=== PATIENT | female | born 1950 | race American Indian/Alaskan Native ===

== ENCOUNTER 2017-05-28 12:59 | Day surgery (SDC) | payer MEDICARE, OTHER ==
[~2017-05-28] VITALS: Ht 157.5 cm; Wt 83.4 kg
[~2017-05-28 12:59] MED LIST: ACEBUTCAFT PO; ACET500 PO; ALPR.5 PO; AMIT25 PO; AMOX500; Bupropion HCl200 MG PO; CALCAVITDA PO; CALCIUM PO; CEPH500 PO; CHLO50 PO; CHOL10002 PO; CIPR500 PO; CLAR500; Cipro250 MG PO; DOXE25 PO; ERGO400 PO; FIBER PO; FLUO20 PO; FURO20; FURO20 PO; FURO40 PO; FURO80 PO; Flonase 0.05% N16 GM; GABA300 PO; HARVONI 90-4001 EACH PO; HYDACE5; HYDACE5 PO; HYDR25SUP PR; HYOS.125 SL; Hydrocodone-Ap1 EA23 PO; L LYSINE PO; LACT10SY PO; LEVSOD100 PO; LEVSOD125; LEVSOD75 PO; LISI5 PO; LORA1 PO; METCAR750 PO; METO10 PO; MULVITMIND PO; MULVITMINE PO; MULVITMINF PO; Maxalt10 MG; Mobic15 MG PO; NADO20 PO; NADO40; NADOLOL; NADOLOL PO; NORT25 PO; OMEP10ER; OMEP20ER PO; ONDA8ODT MM; OXYACE5T PO; OXYB5 PO; OXYC10ER PO; OXYC10TA19 PO; OXYC5 PO; PANT20 PO; PANT40 PO; PERM5TC TOP; POLY17UD PO; PROC10 PO; PROM25 PO; PROM25S PR; RANI150; RIZATRIPTAN10 MG PO; RXONDA4ODT MM; RXTRAM50 PO; SENN187 PO; SPIR25; SPIR25 PO; SPIR50 PO; STOOL SOFTENER; STOOL SOFTENER1 EAC1; SUMA25 PO; TELM40; THIOTHIXENE PO; TOCO400; TOPI100 PO; TOPI25 PO; TOPI25C PO; TRAM50 PO; WOMEN'S DAILY1 EACH PO
[2017-09-22] MEDS ORDERED: NADO20 (13:47)
== END 2017-05-28 16:15 | disposition home or self-care (01) ==
LOC: ORSCSDS 12:59
PROVIDERS: Internal Medicine Gastroenterology
PROC: 0DBL8ZX Excision of Transverse Colon, Via Natural or Artificial Opening Endoscopic, Diagnostic (ICD-10-PCS; principal; 2017-05-28 14:30)
DX: R10.30 Lower abdominal pain, unspecified (principal); D12.3 Benign neoplasm of transverse colon; K59.00 Constipation, unspecified; K57.30 Diverticulosis of large intestine without perforation or abscess without bleeding; K64.8 Other hemorrhoids; K74.60 Unspecified cirrhosis of liver; B19.20 Unspecified viral hepatitis C without hepatic coma; E03.9 Hypothyroidism, unspecified; K21.9 Gastro-esophageal reflux disease without esophagitis; N18.3 Chronic kidney disease, stage 3 (moderate); Z79.899 Other long term (current) drug therapy
CPT/HCPCS: 88305; J7120

== ENCOUNTER 2017-06-26 09:02 | Day surgery (SDC) | payer MEDICARE, OTHER ==
[2017-06-25 16:38] LABS: BASOPHILS ABSOLUTE AUTO 0.01 K/mm3 (0.00-0.23); BASOPHILS PERCENT AUTO 1 % (0-2); EOSINOPHILS ABSOLUTE AUTO 0.03 K/mm3 (0.00-0.68); EOSINOPHILS PERCENT AUTO 1 % (0-6); Hematocrit 36.3 % (33.0-51.0); Hemoglobin 11.7 g/dL (11.5-16.0); IMMATURE GRAN PERCENT AUTO 0 % (0-1); LYMPHOCYTES ABSOLUTE AUTO 0.61 K/mm3 (0.84-5.20); LYMPHOCYTES PERCENT AUTO 29 % (21-46); MONOCYTES ABSOLUTE AUTO 0.18 K/mm3 (0.16-1.47); MONOCYTES PERCENT AUTO 9 % (4-13); Mean Corpuscular HGB 30.2 pg (26.0-34.0); Mean Corpuscular HGB Conc 32.2 g/dL (31.5-36.5); Mean Corpuscular Volume 94 fL (80-100); Mean Platelet Volume 11.1 fL (9.1-12.4); NEUTROPHILS ABSOLUTE AUTO 1.28 K/mm3 (1.96-9.15); NEUTROPHILS PERCENT AUTO 61 % (41-73); RDW Coefficient Variation 14.9 % (11.7-14.2); RDW Standard Deviation 51.2 fL (35.1-46.3); Red Blood Cell Count 3.87 M/mm3 (3.80-5.20); White Blood Cell Count 2.11 K/mm3 (4.00-11.30)
[2017-06-25 16:40] LABS: Platelet Count 35 K/mm3 (150-400)
[2017-06-25 17:17] LABS: Bun/Creatinine Ratio 9.9 (12.0-20.0); Calcium, Blood 8.4 mg/dL (8.5-10.1); Creatinine, Blood 1.11 mg/dL (0.40-1.00); Potassium, Blood 4.2 mmol/L (3.5-5.5)
[2017-09-22] MEDS ORDERED: NADO20 (13:47)
== END 2017-06-26 11:26 | disposition home or self-care (01) ==
LOC: ATC 09:02
PROVIDERS: Podiatrist Foot & Ankle Surgery
PROC: 30233R1 Transfusion of Nonautologous Platelets into Peripheral Vein, Percutaneous Approach (ICD-10-PCS; principal; 2017-06-26)
DX: D69.6 Thrombocytopenia, unspecified (principal); D68.4 Acquired coagulation factor deficiency; M20.10 Hallux valgus (acquired), unspecified foot; E03.9 Hypothyroidism, unspecified; Z88.8 Allergy status to other drugs, medicaments and biological substances; Z79.899 Other long term (current) drug therapy
CPT/HCPCS: 36415; 36430; 80048; 85025; 86850; 86900; 86901; P9035

== ENCOUNTER 2017-06-26 11:38 | Day surgery (SDC) | payer MEDICARE, OTHER ==
[~2017-06-26] VITALS: Ht 157.5 cm; Wt 85.0 kg
[2017-09-22] MEDS ORDERED: NADO20 (13:47)
== END 2017-06-26 17:37 | disposition home or self-care (01) ==
LOC: ORSCSDS 11:38
PROVIDERS: Podiatrist Foot & Ankle Surgery
PROC: 0SGN04Z Fusion of Left Metatarsal-Phalangeal Joint with Internal Fixation Device, Open Approach (ICD-10-PCS; principal; 2017-06-26 14:45)
DX: M20.12 Hallux valgus (acquired), left foot (principal); I10 Essential (primary) hypertension; N18.3 Chronic kidney disease, stage 3 (moderate); B19.20 Unspecified viral hepatitis C without hepatic coma; K21.9 Gastro-esophageal reflux disease without esophagitis; Z79.899 Other long term (current) drug therapy; E66.9 Obesity, unspecified; Z68.32 Body mass index [BMI] 32.0-32.9, adult
CPT/HCPCS: C1713; C1769; J0171; J0690; J1100; J2250; J2405; J3010; J7120

== ENCOUNTER 2017-08-02 01:02 | Emergency (ER) | payer MEDICARE, OTHER ==
[~2017-08-02] VITALS: Ht 157.5 cm; Wt 79.4 kg
[2017-08-02 01:54] LABS: BASOPHILS ABSOLUTE AUTO 0.01 K/mm3 (0.00-0.23); BASOPHILS PERCENT AUTO 1 % (0-2); EOSINOPHILS ABSOLUTE AUTO 0.03 K/mm3 (0.00-0.68); EOSINOPHILS PERCENT AUTO 1 % (0-6); Hematocrit 34.3 % (33.0-51.0); Hemoglobin 11.1 g/dL (11.5-16.0); IMMATURE GRAN ABSOLUTE AUTO 0.01 K/mm3 (0.00-0.10); IMMATURE GRAN PERCENT AUTO 1 % (0-1); LYMPHOCYTES ABSOLUTE AUTO 0.43 K/mm3 (0.84-5.20); LYMPHOCYTES PERCENT AUTO 21 % (21-46); MONOCYTES ABSOLUTE AUTO 0.18 K/mm3 (0.16-1.47); MONOCYTES PERCENT AUTO 9 % (4-13); Mean Corpuscular HGB 29.9 pg (26.0-34.0); Mean Corpuscular HGB Conc 32.4 g/dL (31.5-36.5); Mean Corpuscular Volume 93 fL (80-100); Mean Platelet Volume 9.6 fL (9.1-12.4); NEUTROPHILS ABSOLUTE AUTO 1.41 K/mm3 (1.96-9.15); NEUTROPHILS PERCENT AUTO 68 % (41-73); RDW Coefficient Variation 14.8 % (11.7-14.2); RDW Standard Deviation 49.4 fL (35.1-46.3); Red Blood Cell Count 3.71 M/mm3 (3.80-5.20); White Blood Cell Count 2.07 K/mm3 (4.00-11.30)
[2017-08-02 03:02] LABS: Platelet Count 31 K/mm3 (150-400)
[2017-08-02 03:16] LABS: Alanine Aminotransfer (ALT/SGP 13 U/L (12-78); Albumin, Blood 3.1 g/dL (3.4-5.0); Albumin/Globulin Ratio 0.9 (0.8-1.8); Alk Phos 79 U/L (50-136); Anion Gap 8 mmol/L (6-16); Aspartate Aminotrans (AST/SGOT 13 U/L (12-37); Bilirubin, Total 0.8 mg/dL (0.1-1.0); Blood Urea Nitrogen 14 mg/dL (8-24); Bun/Creatinine Ratio 13.1 (12.0-20.0); CO2, Blood 24 mmol/L (21-32); Calcium, Blood 8.3 mg/dL (8.5-10.1); Chloride, Blood 107 mmol/L (98-108); Creatinine, Blood 1.07 mg/dL (0.40-1.00); Globulin, Blood 3.6 g/dL (2.2-4.0); Glomerular Filtration Rate 55 (60-); Glucose, Blood 101 mg/dL (70-99); Potassium, Blood 3.7 mmol/L (3.5-5.5); Sodium, Blood 139 mmol/L (136-145); Total Protein, Blood 6.7 g/dL (6.4-8.2); Troponin I <0.015 ng/mL (0.000-0.040)
[2017-09-22] MEDS ORDERED: NADO20 (13:47)
== END 2017-08-02 05:05 | disposition home or self-care (01) ==
LOC: ER 01:02
PROVIDERS: Emergency Medicine
DX: R06.00 Dyspnea, unspecified (principal); F31.9 Bipolar disorder, unspecified; Z88.5 Allergy status to narcotic agent; Z88.8 Allergy status to other drugs, medicaments and biological substances; Z79.899 Other long term (current) drug therapy
CPT/HCPCS: 36415; 71046; 80053; 83880; 84484; 85025; 85379; 93005; 93010; 99283

== ENCOUNTER 2017-08-14 10:44 | Day surgery (SDC) | payer MEDICARE, OTHER ==
[~2017-08-14] VITALS: Ht 157.5 cm; Wt 84.5 kg
[2017-09-22] MEDS ORDERED: NADO20 (13:47)
== END 2017-08-14 12:46 | disposition home or self-care (01) ==
LOC: ORSCSDS 10:44
PROVIDERS: Internal Medicine Gastroenterology
PROC: 0DB68ZX Excision of Stomach, Via Natural or Artificial Opening Endoscopic, Diagnostic (ICD-10-PCS; principal; 2017-08-14 12:30)
DX: I85.00 Esophageal varices without bleeding (principal); K62.1 Rectal polyp; B19.20 Unspecified viral hepatitis C without hepatic coma; F32.9 Major depressive disorder, single episode, unspecified; E03.9 Hypothyroidism, unspecified; E87.6 Hypokalemia; K21.9 Gastro-esophageal reflux disease without esophagitis; K74.60 Unspecified cirrhosis of liver; K76.6 Portal hypertension; K31.89 Other diseases of stomach and duodenum; Z79.899 Other long term (current) drug therapy
CPT/HCPCS: 88305; 88312; 88342; J7120

== ENCOUNTER 2017-09-15 20:24 | Emergency (ER) | payer MEDICARE, OTHER ==
[~2017-09-15] VITALS: Ht 157.5 cm; Wt 81.7 kg
[2017-09-15 20:47] LABS: BASOPHILS ABSOLUTE AUTO 0.02 K/mm3 (0.00-0.23); BASOPHILS PERCENT AUTO 1 % (0-2); EOSINOPHILS ABSOLUTE AUTO 0.01 K/mm3 (0.00-0.68); EOSINOPHILS PERCENT AUTO 0 % (0-6); Hematocrit 32.2 % (33.0-51.0); Hemoglobin 10.6 g/dL (11.5-16.0); IMMATURE GRAN ABSOLUTE AUTO 0.01 K/mm3 (0.00-0.10); IMMATURE GRAN PERCENT AUTO 0 % (0-1); LYMPHOCYTES ABSOLUTE AUTO 0.38 K/mm3 (0.84-5.20); LYMPHOCYTES PERCENT AUTO 9 % (21-46); MONOCYTES ABSOLUTE AUTO 0.41 K/mm3 (0.16-1.47); MONOCYTES PERCENT AUTO 9 % (4-13); Mean Corpuscular HGB 30.1 pg (26.0-34.0); Mean Corpuscular HGB Conc 32.9 g/dL (31.5-36.5); Mean Corpuscular Volume 92 fL (80-100); Mean Platelet Volume 12.2 fL (9.1-12.4); NEUTROPHILS PERCENT AUTO 81 % (41-73); RDW Coefficient Variation 14.9 % (11.7-14.2); RDW Standard Deviation 50.2 fL (35.1-46.3); Red Blood Cell Count 3.52 M/mm3 (3.80-5.20); White Blood Cell Count 4.43 K/mm3 (4.00-11.30)
[2017-09-15 20:50] LABS: Platelet Count 25 K/mm3 (150-400)
[2017-09-15 21:06] LABS: Anion Gap 9 mmol/L (6-16); Blood Urea Nitrogen 18 mg/dL (8-24); Bun/Creatinine Ratio 16.7 (12.0-20.0); CO2, Blood 22 mmol/L (21-32); Calcium, Blood 8.3 mg/dL (8.5-10.1); Chloride, Blood 108 mmol/L (98-108); Creatinine, Blood 1.08 mg/dL (0.40-1.00); Ethanol (Alcohol), Blood, Med <3 mg/dL; Glomerular Filtration Rate 54 (60-); Glucose, Blood 112 mg/dL (70-99); Potassium, Blood 4.2 mmol/L (3.5-5.5); Sodium, Blood 139 mmol/L (136-145)
== END 2017-09-15 21:30 | disposition home or self-care (01) ==
LOC: ER 20:24
PROVIDERS: Emergency Medicine
DX: S01.01XA Laceration without foreign body of scalp, initial encounter (principal); S16.1XXA Strain of muscle, fascia and tendon at neck level, initial encounter; D69.6 Thrombocytopenia, unspecified; Z23 Encounter for immunization; W18.30XA Fall on same level, unspecified, initial encounter
CPT/HCPCS: 12001; 70450; 72125; 80048; 85025; 90471; 90714; 99284; G0480

== ENCOUNTER 2017-09-29 12:45 | Day surgery (SDC) | payer MEDICARE, OTHER ==
[~2017-09-29] VITALS: Ht 157.5 cm; Wt 83.0 kg
[~2017-09-29 12:45] MED LIST changes: +NADO20
[2017-09-29] MEDS ORDERED: GABA300 (13:34)
[2017-09-29] MEDS ORDERED: TOPI100 (13:36)
== END 2017-09-29 16:40 | disposition home or self-care (01) ==
LOC: ORSCSDS 12:45
PROVIDERS: Internal Medicine Gastroenterology
PROC: 0DJD8ZZ Inspection of Lower Intestinal Tract, Via Natural or Artificial Opening Endoscopic (ICD-10-PCS; principal; 2017-09-29 14:00)
DX: R10.32 Left lower quadrant pain (principal); K57.92 Diverticulitis of intestine, part unspecified, without perforation or abscess without bleeding; K62.89 Other specified diseases of anus and rectum; K76.6 Portal hypertension; K31.89 Other diseases of stomach and duodenum; K64.8 Other hemorrhoids; K57.30 Diverticulosis of large intestine without perforation or abscess without bleeding; R10.31 Right lower quadrant pain; Z86.010 Personal history of colon polyps; B19.20 Unspecified viral hepatitis C without hepatic coma; R18.8 Other ascites; K21.9 Gastro-esophageal reflux disease without esophagitis; E03.9 Hypothyroidism, unspecified; F32.9 Major depressive disorder, single episode, unspecified; E87.6 Hypokalemia; N18.3 Chronic kidney disease, stage 3 (moderate); Z79.899 Other long term (current) drug therapy
CPT/HCPCS: J7120

== ENCOUNTER → 2018-03-31 | Outpatient (CLI) | payer MEDICARE, OTHER ==
[~2018-03-31] MED LIST changes: +GABA300; +TOPI100
[2018-03-31 09:19] LABS: BASOPHILS ABSOLUTE AUTO 0.01 K/mm3 (0.00-0.23); BASOPHILS PERCENT AUTO 1 % (0-2); EOSINOPHILS ABSOLUTE AUTO 0.06 K/mm3 (0.00-0.68); EOSINOPHILS PERCENT AUTO 3 % (0-6); Hematocrit 33.8 % (33.0-51.0); Hemoglobin 10.9 g/dL (11.5-16.0); IMMATURE GRAN ABSOLUTE AUTO 0.01 K/mm3 (0.00-0.10); IMMATURE GRAN PERCENT AUTO 1 % (0-1); LYMPHOCYTES PERCENT AUTO 15 % (21-46); MONOCYTES ABSOLUTE AUTO 0.11 K/mm3 (0.16-1.47); MONOCYTES PERCENT AUTO 6 % (4-13); Mean Corpuscular HGB 26.8 pg (26.0-34.0); Mean Corpuscular HGB Conc 32.2 g/dL (31.5-36.5); Mean Corpuscular Volume 83 fL (80-100); Mean Platelet Volume 10.7 fL (9.1-12.4); NEUTROPHILS PERCENT AUTO 75 % (41-73); RDW Coefficient Variation 17.1 % (11.7-14.2); RDW Standard Deviation 51.5 fL (35.1-46.3); Red Blood Cell Count 4.07 M/mm3 (3.80-5.20); White Blood Cell Count 1.99 K/mm3 (4.00-11.30)
[2018-03-31 09:31] LABS: Bun/Creatinine Ratio 14.4 (12.0-20.0); Calcium, Blood 8.5 mg/dL (8.5-10.1); Creatinine, Blood 1.32 mg/dL (0.40-1.00); Potassium, Blood 3.5 mmol/L (3.5-5.5)
[2018-03-31 10:36] LABS: BAND PERCENT MAN 3 % (0-8); BASOPHILS PERCENT MAN 2 % (0-2); EOSINOPHILS PERCENT MAN 4 % (0-6); LYMPHOCYTES PERCENT MAN 16 % (21-46); MONOCYTES PERCENT MAN 3 % (4-13); SEG NEUTROPHILS PERCENT MAN 72 % (41-73); TOTAL CELLS COUNTED 100
[2018-03-31 10:45] LABS: Platelet Count 29 K/mm3 (150-400)
== END | disposition home or self-care (01) ==
LOC: LAB EV 09:14 → LAB SHORT 09:14
PROVIDERS: Physician Assistant Surgical
DX: R10.32 Left lower quadrant pain (principal); R53.83 Other fatigue
CPT/HCPCS: 80048; 84484; 85025

== ENCOUNTER 2018-06-08 09:40 | Day surgery (SDC) | payer MEDICARE, OTHER ==
[~2018-06-08] VITALS: Ht 160 cm; Wt 69.7 kg
[~2018-06-08 09:40] MED LIST changes: +ALBU90OI61 INH; +ALLO100 PO; +Colace100 MG PO; -GABA300; +GAVILAX17 GM PO; +MOTION RELIEF25 MG PO; -TOPI100
== END 2018-06-08 11:40 | disposition home or self-care (01) ==
LOC: ORSCSDS 09:40
PROVIDERS: Internal Medicine Gastroenterology
PROC: 0DJ08ZZ Inspection of Upper Intestinal Tract, Via Natural or Artificial Opening Endoscopic (ICD-10-PCS; principal; 2018-06-08 11:00)
DX: I85.00 Esophageal varices without bleeding (principal); K76.6 Portal hypertension; K31.89 Other diseases of stomach and duodenum; K21.9 Gastro-esophageal reflux disease without esophagitis; F31.9 Bipolar disorder, unspecified; F43.10 Post-traumatic stress disorder, unspecified; E03.9 Hypothyroidism, unspecified; K74.60 Unspecified cirrhosis of liver; I10 Essential (primary) hypertension; Z79.899 Other long term (current) drug therapy
CPT/HCPCS: J7120

== ENCOUNTER → 2018-09-28 | Outpatient (CLI) | payer MEDICARE, OTHER ==
[~2018-09-28] MED LIST changes: +Augmentin 875-1 EACH PO; +B-121000 MCG PO; +BACL10 PO; +CHLO50; +Flagyl500 MG PO; +IRON150C PO; +METR250 PO; +Ultram50 MG PO
[2018-09-30 09:35] LABS: Campylobacter Sp Not Detected (NOT DETECT); Plesiomonas Shigelloides Not Detected (NOT DETECT); Salmonella Sp Not Detected (NOT DETECT)
[2018-09-30 09:36] LABS: Enteroaggregative E. coli-EAEC Not Detected (NOT DETECT); Enteropathogenic E. coli-EPEC Not Detected (NOT DETECT); Enterotoxigenic E. coli-ETEC Not Detected (NOT DETECT); Shiga Toxin-prod E. coli-STEC Not Detected (NOT DETECT); Vibrio Cholerae Not Detected (NOT DETECT); Vibrio Sp Not Detected (NOT DETECT); Yersinia Enterocolitica Not Detected (NOT DETECT)
[2018-09-30 09:37] LABS: Adenovirus F 40/41 Not Detected (NOT DETECT); Astrovirus Not Detected (NOT DETECT); Cryptosporidium Not Detected (NOT DETECT); Cyclospora Cayetanensis Not Detected (NOT DETECT); E. Coli O157 Not Detected (NOT DETECT); Entamoeba Histolytica Not Detected (NOT DETECT); Giardia Lamblia Not Detected (NOT DETECT); Norovirus GI/GII Not Detected (NOT DETECT); Rotavirus A Not Detected (NOT DETECT); Sapovirus Not Detected (NOT DETECT); Shigella/Enteroin E. coli-EIEC Not Detected (NOT DETECT)
== END ==
LOC: LAB 06:15 → LAB SHORT 06:15 → LAB FUT 09-08 16:15
PROVIDERS: Internal Medicine Gastroenterology
DX: R93.3 Abnormal findings on diagnostic imaging of other parts of digestive tract (principal)
CPT/HCPCS: 87507

== ENCOUNTER 2018-11-03 00:07 | Day surgery (SDC) | payer MEDICARE, OTHER ==
[~2018-11-03 00:07] MED LIST changes: -ALLO100 PO; -B-121000 MCG PO; -Bupropion HCl200 MG PO; -OXYB5 PO; -PANT20 PO
--- NOTE | 2018-11-03 10:09 | NUR ---
IV ATTEMPT X2, NOT ABLE TO FLUSH, DC Rivas RN IN TO ACCESS, SEE VAS RECORD
== END 2018-11-03 10:55 | disposition home or self-care (01) ==
LOC: ATC 00:07
DX: D69.6 Thrombocytopenia, unspecified (principal); F31.9 Bipolar disorder, unspecified; F43.10 Post-traumatic stress disorder, unspecified; E03.9 Hypothyroidism, unspecified; K21.9 Gastro-esophageal reflux disease without esophagitis; G43.909 Migraine, unspecified, not intractable, without status migrainosus; Z79.899 Other long term (current) drug therapy; Z88.8 Allergy status to other drugs, medicaments and biological substances; Z88.1 Allergy status to other antibiotic agents
CPT/HCPCS: 36430; 86900; 86901; J7050; P9035

== ENCOUNTER 2018-11-22 17:34 | Emergency (ER) | payer OTHER ==
[~2018-11-22] VITALS: Ht 160 cm; Wt 60.8 kg
[2018-11-22] MEDS ORDERED: OXYC10TA19 (18:20)
[2018-11-22] MEDS ORDERED: METCAR500 PO (18:20)
[2018-11-22 18:54] LABS: BASOPHILS ABSOLUTE AUTO 0.04 K/mm3 (0.00-0.23); BASOPHILS PERCENT AUTO 1 % (0-2); EOSINOPHILS ABSOLUTE AUTO 0.01 K/mm3 (0.00-0.68); EOSINOPHILS PERCENT AUTO 0 % (0-6); Hematocrit 35.8 % (33.0-51.0); IMMATURE GRAN ABSOLUTE AUTO 0.02 K/mm3 (0.00-0.10); IMMATURE GRAN PERCENT AUTO 1 % (0-1); LYMPHOCYTES ABSOLUTE AUTO 0.59 K/mm3 (0.84-5.20); LYMPHOCYTES PERCENT AUTO 19 % (21-46); MONOCYTES ABSOLUTE AUTO 0.28 K/mm3 (0.16-1.47); MONOCYTES PERCENT AUTO 9 % (4-13); Mean Corpuscular HGB 30.9 pg (26.0-34.0); Mean Corpuscular HGB Conc 33.5 g/dL (31.5-36.5); Mean Corpuscular Volume 92 fL (80-100); Mean Platelet Volume 10.1 fL (9.1-12.4); NEUTROPHILS ABSOLUTE AUTO 2.21 K/mm3 (1.96-9.15); NEUTROPHILS PERCENT AUTO 70 % (41-73); RDW Standard Deviation 54.5 fL (35.1-46.3); Red Blood Cell Count 3.88 M/mm3 (3.80-5.20); White Blood Cell Count 3.15 K/mm3 (4.00-11.30)
[2018-11-22 19:00] LABS: Platelet Count 47 K/mm3 (150-400)
[2018-11-22 19:03] LABS: Alanine Aminotransfer (ALT/SGP 24 U/L (12-78); Albumin, Blood 3.2 g/dL (3.4-5.0); Albumin/Globulin Ratio 0.9 (0.8-1.8); Alk Phos 132 U/L (50-136); Anion Gap 10 mmol/L (6-16); Aspartate Aminotrans (AST/SGOT 19 U/L (12-37); Bilirubin, Total 1.2 mg/dL (0.1-1.0); Blood Urea Nitrogen 13 mg/dL (8-24); Bun/Creatinine Ratio 16.7 (12.0-20.0); CO2, Blood 22 mmol/L (21-32); Calcium, Blood 8.2 mg/dL (8.5-10.1); Chloride, Blood 106 mmol/L (98-108); Creatinine, Blood 0.78 mg/dL (0.40-1.00); Globulin, Blood 3.5 g/dL (2.2-4.0); Glomerular Filtration Rate >60 (60-); Glucose, Blood 82 mg/dL (70-99); Potassium, Blood 3.5 mmol/L (3.5-5.5); Sodium, Blood 138 mmol/L (136-145); Total Protein, Blood 6.7 g/dL (6.4-8.2)
[2018-11-22 19:38] LABS: International Normalized Ratio 1.35; Prothrombin Time Results 13.9 Sec (9.7-11.5)
[2018-11-22] MEDS ORDERED: ANTI-DIARRHEAL2 MG PO (20:12)
[2018-11-22] MEDS ORDERED: ONDA4ODT MM (20:12)
== END 2018-11-22 20:31 | disposition home or self-care (01) ==
LOC: ER 17:34
PROVIDERS: Physician Assistant
DX: K74.60 Unspecified cirrhosis of liver (principal); D69.6 Thrombocytopenia, unspecified; R19.7 Diarrhea, unspecified; G43.909 Migraine, unspecified, not intractable, without status migrainosus; F31.9 Bipolar disorder, unspecified; F43.10 Post-traumatic stress disorder, unspecified; Z79.899 Other long term (current) drug therapy; Z79.891 Long term (current) use of opiate analgesic
CPT/HCPCS: 74177; 80053; 83690; 85025; 85610; 96361-59; 96374-59; 99284-25; J2405; J7030; Q9967

== ENCOUNTER 2019-01-01 14:09 | Emergency (ER) | payer OTHER ==
[~2019-01-01] VITALS: Ht 160 cm; Wt 59.0 kg
[~2019-01-01 14:09] MED LIST changes: +ANTI-DIARRHEAL2 MG PO; +METCAR500 PO; +ONDA4ODT MM; +OXYC10TA19
[2019-01-01] MEDS ORDERED: LACT10SY PO (14:36)
[2019-01-01 14:53] LABS: BASOPHILS ABSOLUTE AUTO 0.04 K/mm3 (0.00-0.23); BASOPHILS PERCENT AUTO 0 % (0-2); EOSINOPHILS PERCENT AUTO 0 % (0-6); Hematocrit 35.3 % (33.0-51.0); IMMATURE GRAN ABSOLUTE AUTO 0.07 K/mm3 (0.00-0.10); IMMATURE GRAN PERCENT AUTO 1 % (0-1); LYMPHOCYTES ABSOLUTE AUTO 0.82 K/mm3 (0.84-5.20); LYMPHOCYTES PERCENT AUTO 7 % (21-46); MONOCYTES ABSOLUTE AUTO 0.32 K/mm3 (0.16-1.47); MONOCYTES PERCENT AUTO 3 % (4-13); Mean Corpuscular HGB 29.1 pg (26.0-34.0); Mean Corpuscular Volume 86 fL (80-100); NEUTROPHILS ABSOLUTE AUTO 10.35 K/mm3 (1.96-9.15); NEUTROPHILS PERCENT AUTO 89 % (41-73); RDW Coefficient Variation 14.5 % (11.7-14.2); RDW Standard Deviation 45.1 fL (35.1-46.3); Red Blood Cell Count 4.12 M/mm3 (3.80-5.20)
[2019-01-01 14:54] LABS: Acetaminophen, Random 23.8 ug/mL (10.0-30.0); Alanine Aminotransfer (ALT/SGP 6 U/L (12-78); Albumin/Globulin Ratio 0.5 (0.8-1.8); Alk Phos 100 U/L (50-136); Anion Gap 13 mmol/L (6-16); Aspartate Aminotrans (AST/SGOT 17 U/L (12-37); Bilirubin, Total 1.3 mg/dL (0.1-1.0); Blood Urea Nitrogen 30 mg/dL (8-24); Bun/Creatinine Ratio 17.2 (12.0-20.0); CO2, Blood 23 mmol/L (21-32); Calcium, Blood 7.9 mg/dL (8.5-10.1); Chloride, Blood 95 mmol/L (98-108); Creatinine, Blood 1.74 mg/dL (0.40-1.00); Ethanol (Alcohol), Blood, Med <3 mg/dL; Glomerular Filtration Rate 31 (60-); Glucose, Blood 93 mg/dL (70-99); Magnesium, Blood 1.7 mg/dL (1.6-2.4); Potassium, Blood 3.4 mmol/L (3.5-5.5); Sodium, Blood 131 mmol/L (136-145); Troponin I <0.015 ng/mL (0.000-0.040)
[2019-01-01 14:57] LABS: Mean Platelet Volume 9.9 fL (9.1-12.4); Platelet Count 85 K/mm3 (150-400)
[2019-01-01 15:44] LABS: International Normalized Ratio 1.32; Prothrombin Time Results 13.6 Sec (9.7-11.5)
[2019-01-01 16:23] LABS: Source, Urine Clean Catch
[2019-01-01 16:31] LABS: Bilirubin, Urine Neg (Neg); Blood, Urine 5+ (Neg); Glucose Qualitative, Urine Neg (Neg); Ketones, Urine 1+ (Neg); Leukocyte Esterase, Urine 1+ (Neg); Nitrite, Urine Neg (Neg); Protein, Urine 2+ (Neg); Specific Gravity, Urine 1.015 (1.003-1.022); Urobilinogen, Urine NORM (Normal)
[2019-01-01 16:40] LABS: Appearance, Urine Cloudy (Clear); Color, Urine Amber (P-Yellow)
[2019-01-01 16:42] LABS: Red Blood Cells, Urine 25-50 /hpf (0-2)
[2019-01-01 16:43] LABS: Bacteria Mod /hpf; Yeast/Fungi Urine Few /hpf
[2019-01-01 16:44] LABS: Squamous Epithelial Cells Few /hpf (Few)
[2019-01-01] MEDS ORDERED: CEPH500 PO (17:18)
== END 2019-01-01 18:00 | disposition home or self-care (01) ==
LOC: ER 14:09
PROVIDERS: Emergency Medicine
DX: N39.0 Urinary tract infection, site not specified (principal); K74.60 Unspecified cirrhosis of liver; R18.8 Other ascites; N28.9 Disorder of kidney and ureter, unspecified; E86.0 Dehydration; F31.9 Bipolar disorder, unspecified; F43.10 Post-traumatic stress disorder, unspecified; Z88.5 Allergy status to narcotic agent; Z88.8 Allergy status to other drugs, medicaments and biological substances; Z79.899 Other long term (current) drug therapy
CPT/HCPCS: 36415; 51701; 80053; 81001; 82140; 83690; 83735; 83880; 84484; 85025; 85610; 87086; 96360-59; 96361-59; 99284-25; G0480

== ENCOUNTER 2019-01-10 16:34 | Emergency (ER) | payer OTHER ==
[~2019-01-10] VITALS: Ht 160 cm; Wt 68.0 kg
== END 2019-01-10 18:35 | disposition home or self-care (01) ==
LOC: ER 16:34
DX: S83.92XA Sprain of unspecified site of left knee, initial encounter (principal); S30.0XXA Contusion of lower back and pelvis, initial encounter; X50.9XXA Other and unspecified overexertion or strenuous movements or postures, initial encounter; Z88.5 Allergy status to narcotic agent; Z88.8 Allergy status to other drugs, medicaments and biological substances; Z79.899 Other long term (current) drug therapy; Z79.891 Long term (current) use of opiate analgesic; G43.909 Migraine, unspecified, not intractable, without status migrainosus; F31.9 Bipolar disorder, unspecified; F43.10 Post-traumatic stress disorder, unspecified
CPT/HCPCS: 72220; 73564; 99283-25

== ENCOUNTER 2019-01-12 12:13 | Emergency (ER) | payer OTHER ==
[~2019-01-12] VITALS: Ht 162.6 cm; Wt 59.0 kg
[2019-01-12 12:49] LABS: BASOPHILS ABSOLUTE AUTO 0.03 K/mm3 (0.00-0.23); BASOPHILS PERCENT AUTO 0 % (0-2); EOSINOPHILS ABSOLUTE AUTO 0.02 K/mm3 (0.00-0.68); EOSINOPHILS PERCENT AUTO 0 % (0-6); Hematocrit 30.1 % (33.0-51.0); Hemoglobin 9.9 g/dL (11.5-16.0); IMMATURE GRAN ABSOLUTE AUTO 0.04 K/mm3 (0.00-0.10); IMMATURE GRAN PERCENT AUTO 1 % (0-1); LYMPHOCYTES PERCENT AUTO 7 % (21-46); MONOCYTES ABSOLUTE AUTO 0.27 K/mm3 (0.16-1.47); MONOCYTES PERCENT AUTO 3 % (4-13); Mean Corpuscular HGB 28.7 pg (26.0-34.0); Mean Corpuscular HGB Conc 32.9 g/dL (31.5-36.5); Mean Corpuscular Volume 87 fL (80-100); Mean Platelet Volume 8.6 fL (9.1-12.4); NEUTROPHILS ABSOLUTE AUTO 7.15 K/mm3 (1.96-9.15); NEUTROPHILS PERCENT AUTO 88 % (41-73); Platelet Count 71 K/mm3 (150-400); RDW Coefficient Variation 16.6 % (11.7-14.2); RDW Standard Deviation 51.5 fL (35.1-46.3); Red Blood Cell Count 3.45 M/mm3 (3.80-5.20); White Blood Cell Count 8.11 K/mm3 (4.00-11.30)
[2019-01-12 13:05] LABS: Albumin, Blood 2.3 g/dL (3.4-5.0); Albumin/Globulin Ratio 0.6 (0.8-1.8); Bilirubin, Total 1.4 mg/dL (0.1-1.0); Bun/Creatinine Ratio 17.4 (12.0-20.0); Calcium, Blood 8.1 mg/dL (8.5-10.1); Creatinine, Blood 1.84 mg/dL (0.40-1.00); Globulin, Blood 3.9 g/dL (2.2-4.0); Potassium, Blood 3.7 mmol/L (3.5-5.5); Total Protein, Blood 6.2 g/dL (6.4-8.2)
[2019-01-12 13:07] LABS: International Normalized Ratio 1.3; Prothrombin Time Results 13.5 Sec (9.7-11.5)
[2019-01-12 15:07] LABS: Automated BF WBC Count 0.118 K/mm3 (0-999); Body Fluid WBC Count 118 /mm3 (0-999)
[2019-01-12 15:34] LABS: Albumin, Body Fluid 0.3 g/dL; Glucose, Body Fluid 100 mg/dL; Lactate Dehydrogenase, Body Fl 31 U/L; Protein, Body Fluid 0.7 g/dL
[2019-01-12 15:49] LABS: RBC Count, Body Fluid 767 /mm3 (0-0)
[2019-01-12 16:32] LABS: Appearance, Body Fluid Clear (Clear); Color, Body Fluid Yellow (None-Yellow); Total Cell Count, Body Fluid 100
== END 2019-01-12 18:00 | disposition home or self-care (01) ==
LOC: ER 12:13
PROVIDERS: Physician Assistant
DX: R18.8 Other ascites (principal); Z88.5 Allergy status to narcotic agent; Z88.8 Allergy status to other drugs, medicaments and biological substances; Z79.899 Other long term (current) drug therapy; Z79.891 Long term (current) use of opiate analgesic; G43.909 Migraine, unspecified, not intractable, without status migrainosus; F31.9 Bipolar disorder, unspecified; F43.10 Post-traumatic stress disorder, unspecified
CPT/HCPCS: 36415; 49083; 80053; 82042; 82945; 83615; 84157; 85025; 85610; 87070; 87205; 89051; 99284-25

== ENCOUNTER 2019-01-28 11:49 | Inpatient (IN) | payer OTHER ==
[~2019-01-28] VITALS: Ht 160 cm; Wt 72.2 kg
[2019-01-28 13:19] LABS: BASOPHILS ABSOLUTE AUTO 0.02 K/mm3 (0.00-0.23); BASOPHILS PERCENT AUTO 1 % (0-2); EOSINOPHILS ABSOLUTE AUTO 0.01 K/mm3 (0.00-0.68); EOSINOPHILS PERCENT AUTO 0 % (0-6); Hematocrit 22.7 % (33.0-51.0); Hemoglobin 7.5 g/dL (11.5-16.0); IMMATURE GRAN ABSOLUTE AUTO 0.01 K/mm3 (0.00-0.10); IMMATURE GRAN PERCENT AUTO 0 % (0-1); LYMPHOCYTES ABSOLUTE AUTO 0.65 K/mm3 (0.84-5.20); LYMPHOCYTES PERCENT AUTO 19 % (21-46); MONOCYTES ABSOLUTE AUTO 0.24 K/mm3 (0.16-1.47); MONOCYTES PERCENT AUTO 7 % (4-13); Mean Corpuscular HGB 28.7 pg (26.0-34.0); Mean Corpuscular Volume 87 fL (80-100); Mean Platelet Volume 9.5 fL (9.1-12.4); NEUTROPHILS ABSOLUTE AUTO 2.46 K/mm3 (1.96-9.15); NEUTROPHILS PERCENT AUTO 73 % (41-73); RDW Coefficient Variation 18.6 % (11.7-14.2); RDW Standard Deviation 58.6 fL (35.1-46.3); Red Blood Cell Count 2.61 M/mm3 (3.80-5.20); White Blood Cell Count 3.39 K/mm3 (4.00-11.30)
[2019-01-28 13:21] LABS: Platelet Count 63 K/mm3 (150-400)
[2019-01-28 13:45] LABS: Albumin/Globulin Ratio 0.6 (0.8-1.8); Bilirubin, Total 0.8 mg/dL (0.1-1.0); Bun/Creatinine Ratio 13.1 (12.0-20.0); Calcium, Blood 6.6 mg/dL (8.5-10.1); Creatinine, Blood 1.99 mg/dL (0.40-1.00); Globulin, Blood 3.6 g/dL (2.2-4.0); Potassium, Blood 2.9 mmol/L (3.5-5.5); Total Protein, Blood 5.6 g/dL (6.4-8.2)
[2019-01-28] MEDS ORDERED: FOLI1 PO (14:41)
[2019-01-28] MEDS ORDERED: GABA300 PO (14:41)
[2019-01-28] MEDS ORDERED: MOTION RELIEF25 MG PO (14:42)
[2019-01-28] MEDS ORDERED: POTA10T PO (14:43)
[2019-01-28] MEDS ORDERED: Lasix40 MG PO (14:44)
[2019-01-28] MEDS ORDERED: ALLO100 PO (14:46)
[2019-01-28 16:14] LABS: Magnesium, Blood 1.7 mg/dL (1.6-2.4)
[2019-01-28 16:17] LABS: Thyroid Stimulating Hormone 29.4 uIU/mL (0.360-4.800)
--- NOTE | 2019-01-28 19:23 | NUR ---
PT ADMITTED AT 1800. ADMIT DONE EXCEPT HISTORY. SPOKE TO DR SU, HE SAW PT. ORDERS MADE. STATES WILL WRITE ORDERS FOR 1000CC FLUID RESTRICT. PT A/O CALL LITE IN REACH, BED IN LOW POSITION, CALLS APPROP
--- NOTE | 2019-01-29 00:52 | NUR ---
24-HR URINE IS BEING RESTARTED AT THIS TIME SAMPLE IS SOILED BY STOOL IN THE URINE PER CREPE LAMINATOR OPERATOR.
[2019-01-29 05:37] LABS: BASOPHILS ABSOLUTE AUTO 0.03 K/mm3 (0.00-0.23); BASOPHILS PERCENT AUTO 1 % (0-2); EOSINOPHILS ABSOLUTE AUTO 0.03 K/mm3 (0.00-0.68); EOSINOPHILS PERCENT AUTO 1 % (0-6); Hematocrit 23.4 % (33.0-51.0); Hemoglobin 7.9 g/dL (11.5-16.0); IMMATURE GRAN ABSOLUTE AUTO 0.02 K/mm3 (0.00-0.10); IMMATURE GRAN PERCENT AUTO 1 % (0-1); LYMPHOCYTES ABSOLUTE AUTO 0.78 K/mm3 (0.84-5.20); LYMPHOCYTES PERCENT AUTO 23 % (21-46); MONOCYTES ABSOLUTE AUTO 0.28 K/mm3 (0.16-1.47); MONOCYTES PERCENT AUTO 8 % (4-13); Mean Corpuscular HGB 29.3 pg (26.0-34.0); Mean Corpuscular HGB Conc 33.8 g/dL (31.5-36.5); Mean Corpuscular Volume 87 fL (80-100); Mean Platelet Volume 9.7 fL (9.1-12.4); NEUTROPHILS ABSOLUTE AUTO 2.31 K/mm3 (1.96-9.15); NEUTROPHILS PERCENT AUTO 67 % (41-73); Platelet Count 79 K/mm3 (150-400); RDW Coefficient Variation 18.4 % (11.7-14.2); RDW Standard Deviation 58.5 fL (35.1-46.3); White Blood Cell Count 3.45 K/mm3 (4.00-11.30)
[2019-01-29 05:59] LABS: Magnesium, Blood 1.8 mg/dL (1.6-2.4)
[2019-01-29 06:09] LABS: Alanine Aminotransfer (ALT/SGP <6 U/L (12-78); Albumin, Blood 1.9 g/dL (3.4-5.0); Albumin/Globulin Ratio 0.5 (0.8-1.8); Alk Phos 65 U/L (50-136); Anion Gap 9 mmol/L (6-16); Aspartate Aminotrans (AST/SGOT 13 U/L (12-37); Bilirubin, Direct 0.4 mg/dL (0.0-0.3); Bilirubin, Indirect 0.5 mg/dL (0.1-0.7); Bilirubin, Total 0.9 mg/dL (0.1-1.0); Blood Urea Nitrogen 30 mg/dL (8-24); Bun/Creatinine Ratio 14.4 (12.0-20.0); CO2, Blood 24 mmol/L (21-32); Calcium, Blood 6.5 mg/dL (8.5-10.1); Chloride, Blood 104 mmol/L (98-108); Creatinine, Blood 2.09 mg/dL (0.40-1.00); Globulin, Blood 3.5 g/dL (2.2-4.0); Glomerular Filtration Rate 25 (60-); Glucose, Blood 92 mg/dL (70-99); Potassium, Blood 3.2 mmol/L (3.5-5.5); Sodium, Blood 137 mmol/L (136-145); Total Protein, Blood 5.4 g/dL (6.4-8.2)
--- NOTE | 2019-01-29 06:09 | NUR ---
SHIFT SUMMARY PT IS A&O X 4, STAND BY PIVOT TRANSFER TO BSC. PT HAS HAD A FEW INCONTINENT VOIDS, HOWEVER 24-HR URINE WAS STARTED. UNFORTUNATELY, SAMPLE BECAME SOILED BY STOOL EARLY THIS AM AND HAD TO BE RESTARTED. PT HAS NOT VOIDED SINCE. FLUID RESTRICTION OF 1L MAINTAINED. ABD IS DISTENDED AND FIRM; ASCITES; PT REPORTS PARACENTESIS WAS DONE IN DECEMBER AND 3.5L WAS REMOVED. 3+ PITTING EDEMA NOTED TO BLE. WILL CONT TO MONITOR AND PROVIDE CARE UNTIL PRESUMED BY ONCOMING RN.
--- NOTE | 2019-01-29 18:14 | NUR ---
PATIENT CONTINUES TO BE ON FLUID RESTRICTIONS. ABD STILL DESTENDED. JON PLACED PER DOC ORDER AND GOOD OUTPUT SINCE THEN. PATIENT IS ALERT BUT IS OFTEN CONFUSED , REPORTS SEEING PEOPLE AND THINGS THAT ARE NOT IN THE ROOM. PATIENT HAD TO BE CONSTANTLY REMINDED NOT TO PUT HER URINE BAG WHICH IS RESTING IN ICE, INTO HER BED. WHEN ASKED ABOUT IT SHE DENIED IT AND SAID THE AIDE WAS LYING EVEN THOUGH WE BOTH SAW HER REACH DOWN AND GRAB IT. SHE IS OFTEN CONFUSED BUT IS REDIRECTABLE. SHE HAS REMAINED IN BED THIS SHIFT AND HAS HAD NO COMPLAINTS OF PAIN, SOB, OR NV.
[2019-01-30 05:05] LABS: Albumin, Blood 1.7 g/dL (3.4-5.0); Anion Gap 6 mmol/L (6-16); Blood Urea Nitrogen 34 mg/dL (8-24); Bun/Creatinine Ratio 15.9 (12.0-20.0); CO2, Blood 23 mmol/L (21-32); Calcium, Blood 6.9 mg/dL (8.5-10.1); Chloride, Blood 106 mmol/L (98-108); Creatinine, Blood 2.14 mg/dL (0.40-1.00); Glomerular Filtration Rate 24 (60-); Glucose, Blood 110 mg/dL (70-99); Magnesium, Blood 1.7 mg/dL (1.6-2.4); Phosphorus, Blood 2.6 mg/dL (2.5-4.9); Potassium, Blood 3.7 mmol/L (3.5-5.5); Sodium, Blood 135 mmol/L (136-145)
[2019-01-30 05:07] LABS: BASOPHILS ABSOLUTE AUTO 0.03 K/mm3 (0.00-0.23); BASOPHILS PERCENT AUTO 1 % (0-2); EOSINOPHILS ABSOLUTE AUTO 0.03 K/mm3 (0.00-0.68); EOSINOPHILS PERCENT AUTO 1 % (0-6); Hematocrit 23.2 % (33.0-51.0); Hemoglobin 7.6 g/dL (11.5-16.0); IMMATURE GRAN ABSOLUTE AUTO 0.02 K/mm3 (0.00-0.10); IMMATURE GRAN PERCENT AUTO 1 % (0-1); LYMPHOCYTES ABSOLUTE AUTO 1.03 K/mm3 (0.84-5.20); LYMPHOCYTES PERCENT AUTO 28 % (21-46); MONOCYTES ABSOLUTE AUTO 0.29 K/mm3 (0.16-1.47); MONOCYTES PERCENT AUTO 8 % (4-13); Mean Corpuscular HGB 28.9 pg (26.0-34.0); Mean Corpuscular HGB Conc 32.8 g/dL (31.5-36.5); Mean Corpuscular Volume 88 fL (80-100); Mean Platelet Volume 9.3 fL (9.1-12.4); NEUTROPHILS ABSOLUTE AUTO 2.34 K/mm3 (1.96-9.15); NEUTROPHILS PERCENT AUTO 63 % (41-73); Platelet Count 81 K/mm3 (150-400); RDW Coefficient Variation 18.6 % (11.7-14.2); RDW Standard Deviation 59.8 fL (35.1-46.3); Red Blood Cell Count 2.63 M/mm3 (3.80-5.20); White Blood Cell Count 3.74 K/mm3 (4.00-11.30)
--- NOTE | 2019-01-30 06:52 | NUR ---
SHIFT SUMMARY PT SLEPT T/O NIGHT. 24HR URINE TEST STILL IN USE UNTIL ABOUT 1045 THIS AM. DANAY IZQUIERDO. CALL LIGHT IN REACH.
[2019-01-30 06:59] LABS: Percent Saturation 29.2 % (15.0-50.0)
[2019-01-30 11:49] LABS: Protein, Urine Quantitative 14.8 mg/dL (0.0-11.9)
--- NOTE | 2019-01-30 19:05 | NUR ---
PT. SITTING IN BED, EXHUSBAND AT BEDSIDE, RELATES HE CAN'T TAKE CARE OF HER AND DOESN'T LIVE WITH HIM. PT. SKIN APPEARS BRONZED OR HEAVILY TANNED. RECEIVED I UPRBC'S TODAY. NO NOTEABLE CHANGES THIS SHIFT.
--- NOTE | 2019-01-30 20:17 | NUR ---
1944: ASSUMED CARE OF PATIENT. PT OOB TO BSC FOR SM BM. PT VERY CONFUSED. PT STAND PIVOT BTB BUT PT INSISTING HER BED IS IN ANOTHER ROOM, AGITATED AT EX-. REORIENTED PATIENT, LINENS CHANGED, ATTENDS CHANGED. BED LOW AND LOCKED AND ALARMED. CALL EDWARDS WITHIN REACH
[2019-01-31 05:04] LABS: BASOPHILS ABSOLUTE AUTO 0.04 K/mm3 (0.00-0.23); BASOPHILS PERCENT AUTO 1 % (0-2); EOSINOPHILS ABSOLUTE AUTO 0.01 K/mm3 (0.00-0.68); EOSINOPHILS PERCENT AUTO 0 % (0-6); Hematocrit 24.9 % (33.0-51.0); Hemoglobin 8.3 g/dL (11.5-16.0); IMMATURE GRAN ABSOLUTE AUTO 0.02 K/mm3 (0.00-0.10); IMMATURE GRAN PERCENT AUTO 1 % (0-1); LYMPHOCYTES ABSOLUTE AUTO 0.92 K/mm3 (0.84-5.20); LYMPHOCYTES PERCENT AUTO 21 % (21-46); MONOCYTES ABSOLUTE AUTO 0.25 K/mm3 (0.16-1.47); MONOCYTES PERCENT AUTO 6 % (4-13); Mean Corpuscular HGB 28.7 pg (26.0-34.0); Mean Corpuscular HGB Conc 33.3 g/dL (31.5-36.5); Mean Corpuscular Volume 86 fL (80-100); NEUTROPHILS PERCENT AUTO 71 % (41-73); Platelet Count 68 K/mm3 (150-400); RDW Standard Deviation 56.5 fL (35.1-46.3); Red Blood Cell Count 2.89 M/mm3 (3.80-5.20); White Blood Cell Count 4.34 K/mm3 (4.00-11.30)
[2019-01-31 05:45] LABS: Magnesium, Blood 1.9 mg/dL (1.6-2.4)
[2019-01-31 05:47] LABS: Albumin, Blood 1.8 g/dL (3.4-5.0); Anion Gap 10 mmol/L (6-16); Blood Urea Nitrogen 36 mg/dL (8-24); Bun/Creatinine Ratio 16.4 (12.0-20.0); CO2, Blood 22 mmol/L (21-32); Calcium, Blood 7.2 mg/dL (8.5-10.1); Chloride, Blood 107 mmol/L (98-108); Glomerular Filtration Rate 24 (60-); Glucose, Blood 109 mg/dL (70-99); Phosphorus, Blood 2.8 mg/dL (2.5-4.9); Potassium, Blood 3.7 mmol/L (3.5-5.5); Sodium, Blood 139 mmol/L (136-145)
[2019-01-31] MEDS ORDERED: ACET325 PO (12:47)
[2019-01-31] MEDS ORDERED: Bumetanide2 MG PO (12:47)
[2019-01-31] MEDS ORDERED: LEVSOD50 PO (12:49)
[2019-01-31] MEDS ORDERED: CALCIUM CARBONATE PO (12:49)
[2019-01-31] MEDS ORDERED: METO2.5 PO (12:49)
[2019-01-31] MEDS ORDERED: ONDA4ODT MM (12:50)
[2019-01-31] MEDS ORDERED: PROP10 PO (12:50)
--- NOTE | 2019-01-31 17:25 | NUR ---
REPORT CALLED TO DESTINY AT [facility]. PT AWAITING W/C TRANSPORT AT 1800. DANAY DC'D AND PT HAD 2 INCONT VOIDS SINCE. SPOUSE BRANDT NOTIFIED VIA PHONE IN PT ROOM, HE REPORTS HE DIDNT THINK SHE WANTED [facility] HOWEVER PT IS IN THE BACKGROUND STATING SHE WANTS [facility], VERIFIED AGAIN WHEN OFF THE PHONE AND PT CONT TO REPORT SHE IS FINE WITH [facility] AND WANTS TO GO. SACRAL DRESSING PLACED COCCYX.
--- NOTE | 2019-01-31 18:10 | NUR ---
PT DC'D TO [facility] VIA [facility] W/C AT 1802.
== END 2019-01-31 18:02 | DRG 291 ==
LOC: ER 11:49 → MEDS 11:50 → ENPENDDIS 01-31 10:40 → MEDS 01-31 18:02
PROVIDERS: Emergency Medicine; Internal Medicine Nephrology; ADMIT Family Medicine
DX: I13.0 Hypertensive heart and chronic kidney disease with heart failure and stage 1 through stage 4 chronic kidney disease, or unspecified chronic kidney disease (principal); N17.0 Acute kidney failure with tubular necrosis; D61.818 Other pancytopenia; E87.1 Hypo-osmolality and hyponatremia; E44.0 Moderate protein-calorie malnutrition; N18.4 Chronic kidney disease, stage 4 (severe); N25.81 Secondary hyperparathyroidism of renal origin; B19.20 Unspecified viral hepatitis C without hepatic coma; F31.9 Bipolar disorder, unspecified; G43.909 Migraine, unspecified, not intractable, without status migrainosus; G89.4 Chronic pain syndrome; D63.1 Anemia in chronic kidney disease; K74.60 Unspecified cirrhosis of liver; E03.9 Hypothyroidism, unspecified; E87.6 Hypokalemia; E83.51 Hypocalcemia; E87.70 Fluid overload, unspecified; E88.09 Other disorders of plasma-protein metabolism, not elsewhere classified; I50.810 Right heart failure, unspecified
CPT/HCPCS: 36415; 36430; 71046; 76705; 80053; 80069; 81050; 82140; 82248; 82272; 82607; 82728; 82746; 83540; 83550; 83735; 83880; 84156; 84443; 84484; 85025; 86850; 86900; 86901; 86923; 93005; 93010; 93971; 96372; 96374; 96376; 97162; 97166; 97530; 99285-25; C9113; G0378; J1644; P9016

== ENCOUNTER 2019-02-04 10:02 | Emergency (ER) | payer OTHER ==
[~2019-02-04] VITALS: Ht 160 cm; Wt 31.8 kg
[~2019-02-04 10:02] MED LIST changes: +ACET325 PO; +ALLO100 PO; +Bumetanide2 MG PO; +CALCIUM CARBONATE PO; +FOLI1 PO; +LEVSOD50 PO; +Lasix40 MG PO; +METO2.5 PO; +POTA10T PO; +PROP10 PO
[2019-02-04 10:42] LABS: BASOPHILS ABSOLUTE AUTO 0.03 K/mm3 (0.00-0.23); BASOPHILS PERCENT AUTO 0 % (0-2); EOSINOPHILS ABSOLUTE AUTO 0.01 K/mm3 (0.00-0.68); EOSINOPHILS PERCENT AUTO 0 % (0-6); Hematocrit 29.2 % (33.0-51.0); Hemoglobin 9.9 g/dL (11.5-16.0); IMMATURE GRAN ABSOLUTE AUTO 0.03 K/mm3 (0.00-0.10); IMMATURE GRAN PERCENT AUTO 0 % (0-1); LYMPHOCYTES ABSOLUTE AUTO 1.11 K/mm3 (0.84-5.20); LYMPHOCYTES PERCENT AUTO 17 % (21-46); MONOCYTES ABSOLUTE AUTO 0.35 K/mm3 (0.16-1.47); MONOCYTES PERCENT AUTO 5 % (4-13); Mean Corpuscular HGB 28.4 pg (26.0-34.0); Mean Corpuscular HGB Conc 33.9 g/dL (31.5-36.5); Mean Corpuscular Volume 84 fL (80-100); Mean Platelet Volume 9.5 fL (9.1-12.4); NEUTROPHILS ABSOLUTE AUTO 5.18 K/mm3 (1.96-9.15); NEUTROPHILS PERCENT AUTO 77 % (41-73); Platelet Count 71 K/mm3 (150-400); RDW Coefficient Variation 17.5 % (11.7-14.2); RDW Standard Deviation 53.4 fL (35.1-46.3); Red Blood Cell Count 3.48 M/mm3 (3.80-5.20); White Blood Cell Count 6.71 K/mm3 (4.00-11.30)
[2019-02-04 10:46] LABS: Source, Urine Catheter
[2019-02-04 11:02] LABS: Bilirubin, Urine Neg (Neg); Blood, Urine 5+ (Neg); Glucose Qualitative, Urine Neg (Neg); Ketones, Urine Neg (Neg); Leukocyte Esterase, Urine 3+ (Neg); Nitrite, Urine Neg (Neg); Protein, Urine Neg (Neg); Specific Gravity, Urine 1.005 (1.003-1.022); Urobilinogen, Urine NORM (Normal)
[2019-02-04 11:09] LABS: Appearance, Urine Hazy (Clear); Bacteria Many /hpf; Color, Urine Yellow (P-Yellow); Red Blood Cells, Urine TNTC /hpf (0-2); Squamous Epithelial Cells Not Seen /hpf (Few); White Blood Cells, Urine TNTC /hpf (0-5)
[2019-02-04 11:15] LABS: Albumin, Blood 2.4 g/dL (3.4-5.0); Albumin/Globulin Ratio 0.6 (0.8-1.8); Bilirubin, Total 1.5 mg/dL (0.1-1.0); Bun/Creatinine Ratio 24.4 (12.0-20.0); Calcium, Blood 8.8 mg/dL (8.5-10.1); Creatinine, Blood 2.13 mg/dL (0.40-1.00); Globulin, Blood 4.3 g/dL (2.2-4.0); Total Protein, Blood 6.7 g/dL (6.4-8.2)
[2019-02-04] MEDS ORDERED: LEVSOD50 PO (11:15)
[2019-02-04] MEDS ORDERED: PROHEAL (11:16)
[2019-02-04] MEDS ORDERED: calcium carbonate (11:18)
[2019-02-04] MEDS ORDERED: METO2.5 PO (11:19)
[2019-02-04] MEDS ORDERED: POTA10T PO (11:19)
[2019-02-04] MEDS ORDERED: OXYB5ER PO (11:19)
[2019-02-04] MEDS ORDERED: Aldactone50 MG PO (11:20)
[2019-02-04] MEDS ORDERED: PROP10 PO (11:20)
[2019-02-04] MEDS ORDERED: TOPI100 PO (11:21)
[2019-02-04] MEDS ORDERED: Bumetanide2 MG PO (11:21)
[2019-02-04] MEDS ORDERED: ACETAMINOPHEN650 MG PO (11:22)
[2019-02-04] MEDS ORDERED: ONDA4ODT MM (11:22)
[2019-02-04] MEDS ORDERED: Keflex500 MG PO (12:16)
== END 2019-02-04 15:43 | disposition home or self-care (01) ==
LOC: ER 10:02
PROVIDERS: Emergency Medicine
DX: N39.0 Urinary tract infection, site not specified (principal); I12.9 Hypertensive chronic kidney disease with stage 1 through stage 4 chronic kidney disease, or unspecified chronic kidney disease; N18.4 Chronic kidney disease, stage 4 (severe); D63.1 Anemia in chronic kidney disease; E03.9 Hypothyroidism, unspecified; R58 Hemorrhage, not elsewhere classified; E86.0 Dehydration; D69.6 Thrombocytopenia, unspecified; K74.60 Unspecified cirrhosis of liver; B19.20 Unspecified viral hepatitis C without hepatic coma; Z88.8 Allergy status to other drugs, medicaments and biological substances; Z88.5 Allergy status to narcotic agent; Z79.899 Other long term (current) drug therapy
CPT/HCPCS: 36415; 71046; 80053; 81001; 82140; 85025; 87077; 87086; 87186; 93005; 93010; 96361; 96365; 99285-25; J0696; J7030; P9612

== ENCOUNTER 2019-02-11 12:21 | Inpatient (IN) | payer OTHER ==
[~2019-02-11] VITALS: Ht 160 cm; Wt 48.0 kg
[~2019-02-11 12:21] MED LIST changes: +ACETAMINOPHEN650 MG PO; +Aldactone50 MG PO; +Keflex500 MG PO; +OXYB5ER PO; +PROHEAL; +calcium carbonate
[2019-02-11 14:04] LABS: BASOPHILS ABSOLUTE AUTO 0.07 K/mm3 (0.00-0.23); BASOPHILS PERCENT AUTO 1 % (0-2); EOSINOPHILS ABSOLUTE AUTO 0.02 K/mm3 (0.00-0.68); EOSINOPHILS PERCENT AUTO 0 % (0-6); Hematocrit 29.1 % (33.0-51.0); Hemoglobin 10.5 g/dL (11.5-16.0); IMMATURE GRAN ABSOLUTE AUTO 0.08 K/mm3 (0.00-0.10); IMMATURE GRAN PERCENT AUTO 1 % (0-1); LYMPHOCYTES ABSOLUTE AUTO 2.01 K/mm3 (0.84-5.20); LYMPHOCYTES PERCENT AUTO 22 % (21-46); MONOCYTES ABSOLUTE AUTO 0.47 K/mm3 (0.16-1.47); MONOCYTES PERCENT AUTO 5 % (4-13); Mean Corpuscular HGB 29.8 pg (26.0-34.0); Mean Corpuscular HGB Conc 36.1 g/dL (31.5-36.5); Mean Corpuscular Volume 83 fL (80-100); Mean Platelet Volume 9.1 fL (9.1-12.4); NEUTROPHILS ABSOLUTE AUTO 6.37 K/mm3 (1.96-9.15); NEUTROPHILS PERCENT AUTO 71 % (41-73); Platelet Count 96 K/mm3 (150-400); RDW Coefficient Variation 17.7 % (11.7-14.2); RDW Standard Deviation 51.5 fL (35.1-46.3); Red Blood Cell Count 3.52 M/mm3 (3.80-5.20); White Blood Cell Count 9.02 K/mm3 (4.00-11.30)
[2019-02-11 14:25] LABS: Albumin, Blood 2.9 g/dL (3.4-5.0); Albumin/Globulin Ratio 0.6 (0.8-1.8); Bilirubin, Total 1.6 mg/dL (0.1-1.0); Bun/Creatinine Ratio 34.1 (12.0-20.0); Calcium, Blood 8.8 mg/dL (8.5-10.1); Creatinine, Blood 2.17 mg/dL (0.40-1.00); Globulin, Blood 4.5 g/dL (2.2-4.0); Potassium, Blood 2.6 mmol/L (3.5-5.5); Total Protein, Blood 7.4 g/dL (6.4-8.2)
[2019-02-11 15:08] LABS: International Normalized Ratio 1.22; Prothrombin Time Results 12.7 Sec (9.7-11.5)
[2019-02-11] MEDS ORDERED: Bupropion HCl200 MG PO (15:40)
[2019-02-11] MEDS ORDERED: FOLI1 PO (15:41)
[2019-02-11] MEDS ORDERED: GABA300 PO (15:41)
[2019-02-11] MEDS ORDERED: MOTION RELIEF25 MG PO (15:42)
[2019-02-11] MEDS ORDERED: SPIR25 PO (15:42)
[2019-02-11] MEDS ORDERED: POTCHL20ER PO (15:43)
[2019-02-11] MEDS ORDERED: PANT20 PO (15:43)
[2019-02-11] MEDS ORDERED: FURO40 PO (15:44)
[2019-02-11] MEDS ORDERED: VITAMIN B-121000 MCG PO (15:45)
[2019-02-11] MEDS ORDERED: ALLO100 PO (15:46)
[2019-02-11] MEDS ORDERED: TOPI100 PO (15:46)
[2019-02-11] MEDS ORDERED: Lactulose10 GM/151 PO (16:40)
--- NOTE | 2019-02-11 17:45 | NUR ---
INITIAL ASSESSMENT: REPORT RECIEVED FROM ALEX DEL ANGEL RN. PT ARRIVED TO PCU 14 VIA GURNEY AND WAS SLID TO BED. PT IS SATURATED IN URINE. PT WAS CLEANED UP. PT HAS STAGE 2 PRESSURE ULCER TO COCCYX, LOOKS TO BE HEALING DUE TO SCARRING IN THE SURROUNDING TISSUE. MEPLIEX PLACED TO COCCYX WOUND. CLEAN ATTEND IN PLACE. PT IS ALERT AND ORIENTED TO SELF ONLY. PT IS NOT ABLE TO TELL ME THE DATE AND STATES SHE IS IN [facility]. PT REPORTS 9/10 LEFT HIP PAIN, SHE DESCRIBES THIS A DULL ACHE. WHEN ASKED SHE STATES SHE DOES NOT TAKE ANY MEDICATIONS AT HOME FOR PAIN, SHE USES HEAT AND ICE. HRR. LS CTA, BION WNL ON RA. BT+. PT IS EMACIATED, SHE STATES SHE HAS LOST 125LB IN THE LAST YEAR. PT STATES SHE HAS BEEN TRYING TO LOOSE WEIGHT. PPP. RIGHT LE PRONATED AND HAS A PURPLISH DISCOLORATION. GREAT PEDAL PULSE IN THE LEFT AND THREADY ON THE RIGHT. RN WIN AT BEDSIDE TO ASSIST WITH ADMISSION MEDICATIONS AND HEALTH HISTORY. AT BEDSIDE TO ASSIST WITH HEALTH HISTORY. PT ORIENTED TO ROOM AND CALL LIGHT.
--- NOTE | 2019-02-11 18:00 | NUR ---
CALL PLACED TO DOCTOR SU, CONSULT CALLED, SEE NEW ORDERS.
[2019-02-11 18:56] LABS: Albumin, Blood 2.8 g/dL (3.4-5.0); Anion Gap 7 mmol/L (6-16); Blood Urea Nitrogen 74 mg/dL (8-24); Bun/Creatinine Ratio 35.6 (12.0-20.0); CO2, Blood 34 mmol/L (21-32); Calcium, Blood 8.9 mg/dL (8.5-10.1); Chloride, Blood 81 mmol/L (98-108); Creatinine, Blood 2.08 mg/dL (0.40-1.00); Glomerular Filtration Rate 25 (60-); Glucose, Blood 103 mg/dL (70-99); Magnesium, Blood 2.3 mg/dL (1.6-2.4); Phosphorus, Blood 4.8 mg/dL (2.5-4.9); Potassium, Blood 3.9 mmol/L (3.5-5.5); Sodium, Blood 122 mmol/L (136-145)
[2019-02-12 04:47] LABS: Magnesium, Blood 2.1 mg/dL (1.6-2.4)
[2019-02-12 04:58] LABS: Albumin, Blood 2.7 g/dL (3.4-5.0); Anion Gap 10 mmol/L (6-16); Blood Urea Nitrogen 70 mg/dL (8-24); Bun/Creatinine Ratio 31.1 (12.0-20.0); CO2, Blood 33 mmol/L (21-32); Calcium, Blood 8.4 mg/dL (8.5-10.1); Chloride, Blood 82 mmol/L (98-108); Creatinine, Blood 2.25 mg/dL (0.40-1.00); Glomerular Filtration Rate 23 (60-); Glucose, Blood 98 mg/dL (70-99); Phosphorus, Blood 4.4 mg/dL (2.5-4.9); Potassium, Blood 2.8 mmol/L (3.5-5.5); Sodium, Blood 125 mmol/L (136-145)
--- NOTE | 2019-02-12 05:50 | NUR ---
SHIFT SUMMARY PT RESTING IN ROOM COMFORTABLY AT THIS TIME, EATING SNACK. PT WAS RECEIVING POTASSIUM VIA IA UPON START OF SHIFT AND LEVELS IMPROVED AFTER ADMIN. PT SLEPT WELL T/O NIGHT AND RECEIVED NS AT 50ML/HR VIA PIV. RESP EVEN UNLBAOLRED ON RA W. SATS >92%. PT DENIED ANY CP OR SOB. WITH AM LABS PT POTASSIUM LEVEL DROPPED AGAIN AND NEW ORDERS FOR ADDITIONAL POTASSIUM WERE GIVEN. KCL INFUSING IN PIV AT THIS TIME. PT SITTING UPRIGHT REQUESTING SNACK, ABLE TO FEED SELF. WATCHING TV AT THIS TIME. PT INCONTINENT, ATTENDS IN PLACE. CALL LIGHT IN REACH
[2019-02-12 12:12] LABS: Hematocrit 25.9 % (33.0-51.0); Hemoglobin 9.2 g/dL (11.5-16.0)
--- NOTE | 2019-02-12 13:52 | NUR ---
CHAIR PT HAD INCONTINENT VOID THAT WET BED. PT WAS ABLE TO STAND BRIEFLY AND PIVOT TO RECLINER WHILE LINEN CHANGE PERFORMED. TWO PERSON MAX ASSIST W/GAIT BELT TO TRANSFER. NOW BACK TO BED. POSITIONED TO L SIDE. NEW ATTENDS IN PLACE. CALL LIGHT IN REACH.
--- NOTE | 2019-02-12 15:01 | NUR ---
STARTED IV INFUSION AT 150 HR/[address] PEREZ'S VERBAL ORDER.
--- NOTE | 2019-02-12 17:52 | NUR ---
SUMMARY NO ACUTE CHANGES T/O SHIFT. PT MORE ALERT THIS AFTERNOON AND EVENING. FAMILY AT BEDSIDE. PT INCONTINENT MOST OF TIME. PT STOOD AND PIVOTED TO RECLINER FOR BRIEF PERIOD OF TIME THIS AFTERNOON. VERY WEAK, TWO PERSON MAX ASSIST W/GAIT BELT. DR PEREZ CONSULTED AND ORDERS OBTAINED. FLUIDS RUNNING PER DR PEREZ'S VERBAL ORDERS. CALL LIGHT IN REACH AND BED ALARM ON.
[2019-02-13 04:02] LABS: Hematocrit 23.2 % (33.0-51.0); Hemoglobin 8.2 g/dL (11.5-16.0)
[2019-02-13 04:15] LABS: International Normalized Ratio 1.22; Prothrombin Time Results 12.7 Sec (9.7-11.5)
[2019-02-13 04:26] LABS: Albumin, Blood 2.4 g/dL (3.4-5.0); Albumin/Globulin Ratio 0.7 (0.8-1.8); Bilirubin, Total 0.8 mg/dL (0.1-1.0); Bun/Creatinine Ratio 34.3 (12.0-20.0); Calcium, Blood 7.9 mg/dL (8.5-10.1); Creatinine, Blood 1.72 mg/dL (0.40-1.00); Globulin, Blood 3.6 g/dL (2.2-4.0); Magnesium, Blood 2.2 mg/dL (1.6-2.4); Phosphorus, Blood 3.5 mg/dL (2.5-4.9); Potassium, Blood 2.5 mmol/L (3.5-5.5)
--- NOTE | 2019-02-13 05:36 | NUR ---
SHIFT SUMMARY PT SLEEPING IN ROOM COMFORTABLY AT THIS TIME. PT SLEPT WELL T/O NIGHT. PT DID ASK FOR SOME SNACKS BEFORE BED AND WAS PROVIDED WITH CHIPS AND SODA PER REQUEST. PT REFUSED OFFER OF ENSURE, OR OTHER PROTEINS. DENIED CP OR SOB. RESP EVEN UNLABORED ON RA W/ SATS >92%. LABS NOTED THIS AM TO HAVE CONTINUED LOW POTASSIUM BUT IMPROVED SODIUM LEVELS. PROVIDER ORDERED IV POTASSIUM THIS AM, IFUSING NOW IN PIV W/ MAINTENANCE NS. PT WAS INCONTINENT OF URINE IN ATTENDS T/O NIGHT. CHANGED TWICE, PT WAS UNABLE TO INFORM STAFF OF WHEN SHE WAS GOING. ATTENDS IN PLACE ARE C/D/I OF THIS AM. CALL LIGHT IN REACH.
--- NOTE | 2019-02-13 15:15 | NUR ---
SPOKE WITH DR. SU TO CLARIFY FLUID ORDERS, ORDER FOR NORMAL SALINE TO INFUSE AT 50ML/HR. 1/2 NORMAL SALINE STOPPED AT THIS TIME, AND NORMAL SALINE STARTED.
--- NOTE | 2019-02-13 17:52 | NUR ---
SUMMARY: NO ACUTE CHANGE TODAY. PT CONTINUES TO HAVE SOME CONFUSION, IS ALERT. NEEDED REORIENTED TO YEAR, TIME, AND EVENT. PT FOLLOWS DIRECTIONS AND RECOGNIZES FAMILY. BED ALARM ON, NO ATTEMPTS OOB. PT TURNED Q2 TODAY, CONTINUES TO SATURATE ATTENDS WITH VOIDS, CHANGED PRN. VS AND TELE STABLE, NSR. PT HAS BEEN ENCOUARGED TO EAT AND DRINK. POTASSIUM LEVEL INCREASED FROM 2.5 TO 3.1. ANTIBIOTICS GIVEN. FAMILY AT BEDSIDE NEAR THE END OF SHIFT WITH MANY QUESTIONS CONCERNING PT. EDUCATION AND UPDATE GIVEN.PT ALSO STATED THAT SHE "HAS BEEN CRYING ALL DAY" AND FEELS SAD AND DEPRESSED. THIS RN HAS NOT OBSERVED THE PT CRYING TODAY. PT DOES HAVE FLAT AFFECT AND SEEMS DEPRESSED. THERAPEUTIC COMMUNICATION USED AND MARTHA VISIT OFFERED FOR TONIGHT FOR WHICH PT AGREED. PT IS MED-TELE STATUS. NO ACUTE SAFETY CONCERNS, WILL REPORT TO KATTY RN.
--- NOTE | 2019-02-13 19:54 | NUR ---
PROVIDER CONTACTED PT REPORTING HEADACHE AND REQUESTING MEDICATION TO HELP. PT REPORTS THAT SHE NORMALLY TAKES IBUPROFIN AT HOME FOR THIS TYPE OF PAIN. RYAN WILSON CONTACTED AND ORDERS RECEIVED FOR TYLENOL 650MG X1.
[2019-02-14 04:00] LABS: Hematocrit 23.8 % (33.0-51.0)
[2019-02-14 04:16] LABS: Albumin, Blood 2.3 g/dL (3.4-5.0); Anion Gap 7 mmol/L (6-16); Blood Urea Nitrogen 47 mg/dL (8-24); Bun/Creatinine Ratio 28.8 (12.0-20.0); CO2, Blood 30 mmol/L (21-32); Calcium, Blood 7.7 mg/dL (8.5-10.1); Chloride, Blood 99 mmol/L (98-108); Creatinine, Blood 1.63 mg/dL (0.40-1.00); Glomerular Filtration Rate 33 (60-); Glucose, Blood 100 mg/dL (70-99); Magnesium, Blood 2.3 mg/dL (1.6-2.4); Phosphorus, Blood 2.9 mg/dL (2.5-4.9); Potassium, Blood 2.6 mmol/L (3.5-5.5); Sodium, Blood 136 mmol/L (136-145)
--- NOTE | 2019-02-14 04:51 | NUR ---
PROVIDER CONTACTED PT WITH AM POTASSIUM OF 2.6. DR SU CONTACTED AND ORDERS RECEIVED FOR POTASSIUM 60 MEQ IV X1 WITH A FOLLOW UP POTASSIUM LEVEL AFTER INFUSION. DR SU WOULD LIKE TO BE CALLED WITH RESULTS OF LAB WORK.
--- NOTE | 2019-02-14 06:15 | NUR ---
SHIFT SUMMARY PT HAS REMAINED AOX3 THROUGHOUT SHIFT, REMAINS DISORIENTED TO DATE/TIME BUT RE-ORIENTS WELL. VSS. PLEASANT AND COOPERATIVE WITH CARE. PT HAS SLEPT THROUGHOUT MUCH OF THE NIGHT. TURNED Q2 AND ATTENDS CHANGES PRN. MEDICATED ONCE FOR HEADACHE PAIN THAT DECREASED WITH ORDERED MEDICATION, UNINTERUPTED REST AND DECREASED STIMULATION. CONTINUES TO HAVE FLAT AFFECT, BUT APPEARS MORE HOPEFUL NIGHT GOES ON AND AFTER SPIRITUAL CARE CONSULT PLACED; PT ENCOURAGED TO UTILIZE THERAPEUTIC COMMUNICATION AND EXPRESSION OF NEEDS OR CONCERNS. NO OTHER CHANGES NOTED FROM INITIAL ASSESSMENT. WILL CONTINUE TO MONITOR AND REPORT TO ONCOMING SHIFT RN. BED IN LOW POSITION, CALL LIGHT IN REACH. BED ALARM SET FOR SAFETY.
--- NOTE | 2019-02-14 13:43 | NUR ---
PT C/O GAS PT C/O ABD DISCOMFORT. WHEN ASKED TO DISCRIBE MORE, PT STATES SHE THINKS SHE HAS GAS. DR. KUMARI CALLED & NOTIFIED. SIMETHICONE PRN ORDERED. WILL CONTINUE TO MONITOR
--- NOTE | 2019-02-14 14:11 | NUR ---
Spiritual Care inital note: Kathy appears frail and withdrawn. However, once rapport established, she became talkative. Kathy states that she has been told by a physician that she is dying. She was often tearful as we spoke about her regrets and desires. Forgiveness of son a priority. Kathy is [place] in [place], but is not established in a formal community. I spoke to her about the Wiccan lurdes in natural cycles of life and natural order. I provided gentle education counselor and spiritual guidence to good effect. She told me she felt better at conclusion of visit. She did not appear confused, but this was our first meeting. I will continue to see Kathy as case-load permits.
--- NOTE | 2019-02-14 17:32 | NUR ---
SHIFT SUMMARY/TYLENOL ORDER PT MORE ALERT THIS AFTERNOON. PT HAS RECIEVED [id number] OF KCL SO FAR THIS SHIFT. PT WORKING ON FIFTH BAG PER DR. SU ORDER. PT RECIEVED ONE BOLUS OF 1/2NS & NOW INFUSION OF 100ML/HR OF 1/2NS. PT ATE WELL FOR LUNCH & IS CURRENTLY EATING WELL FOR DINNER. PT C/O ACHES "ALL OVER" THIS AFTERNOON. DR. KUMARI NOTIFIED. OT DOSE OF 650MG TYLENOL PO ORDERED. PT WORKED WELL WITH OT THIS AFTERNOON. NO OTHER CHANGES IN ASSESSMENT AT THIS TIME. VSS. WILL CONTINUE TO MONITOR UNTIL TURNOVER IS COMPLETE.
--- NOTE | 2019-02-14 17:35 | NUR ---
Initial Visit: Pt admitted for electrolyte imbalances. Past medical history of hep c, cirrhosis, CKD stage IV, PTSD, esophageal varices, multiple falls, stomach pain, ascites, edema, malnutrition. Pt is alert, oriented. She is eating dinner. She has eaten meals well today, per TRAFFIC DIRECTOR and nursing. Pt was previously at [facility]. Her and herself do not know if she was there for rehab or there for termite treater helper placement. reports that she will not be going back there, and she will be going to [facility]. His main complaint with [facility] is there sluggish call light response time. Pt reports 8/10 muscle aches. She states it is distracting and severe. She reports that she is sleeping well, has not been anxious or short of breath. Pt has no other concerns at this time. Updated nurse, Monika. She will contact Dr. Layton for pain medication orders. Will remain available. Will need to follow up with code status and POLST form discussion. Pt is end stage.
--- NOTE | 2019-02-14 18:31 | NUR ---
PT ANXIOUS/TEARFUL PER PCT MITCH, PT BECAME TEARFUL WHEN SHE ENTERED THE ROOM. PT VOCALIZED TO MITCH THAT SHE WAS SCARED OF DYING & THOUGHT THE TV WAS TELLING HER SHE WAS GOING TO . MITCH TALKED PT DOWN & ENCOURAGED HER THAT SHE WAS IN GOOD HANDS HERE IN THE HOSPITAL. MITCH ENCOURAGED PT TO CHANGE CHANNEL. PT NO LONGER TEARFUL. WILL CONTINUE TO MONITOR.
[2019-02-15 03:53] LABS: Hematocrit 23.5 % (33.0-51.0); Hemoglobin 7.8 g/dL (11.5-16.0)
[2019-02-15 04:16] LABS: Albumin, Blood 2.3 g/dL (3.4-5.0); Anion Gap 8 mmol/L (6-16); Blood Urea Nitrogen 39 mg/dL (8-24); Bun/Creatinine Ratio 28.9 (12.0-20.0); CO2, Blood 25 mmol/L (21-32); Calcium, Blood 7.5 mg/dL (8.5-10.1); Chloride, Blood 102 mmol/L (98-108); Creatinine, Blood 1.35 mg/dL (0.40-1.00); Glomerular Filtration Rate 42 (60-); Glucose, Blood 103 mg/dL (70-99); Sodium, Blood 135 mmol/L (136-145)
--- NOTE | 2019-02-15 05:54 | NUR ---
SHIFT SUMMARY PT HAS REMAINED AOX2-3 THROUGHOUT THE NIGHT; DISORIENTED TO SURROUNDINGS AND DATE, BUT REORIENTS WELL. VSS. PLEASANT AND COOPERATIVE WITH CARE. PT HAS NOT RESTED MUCH THROUGHOUT THE NIGHT AND CONTINUES TO CALL OUT INTO THE HALLWAY INSTEAD OF UTILIZING CALL LIGHT. PT HAS BEEN TURNING SELF IN BED THROUGHOUT THE NIGHT, ALSO ASSISTING WITH TURNING AND CHANGING. HAS REMAINED INCONTINENT OF URINE AND STOOL. PT REPORTING INABILITY TO PASS STOOL, BOWEL PROTOCOL ORDERED FOR PATIENT TO START THIS AM. NO OTHER CHANGES NOTED FROM INITIAL ASSESSMENT. WILL CONTINUE TO MONITOR AND REPORT TO ONCOMING SHIFT RN. BED IN LOW POSITION, CALL LIGHT IN REACH. BED ALARM SET FOR SAFETY.
--- NOTE | 2019-02-15 10:58 | NUR ---
STARTED 1/2 NS AT 400 WHICH WAS FAST THE PUMP WOULD ALLOW WITH THE POTASIUM RUNNING AT THE SAME TIME, WILL RUN 500 MORE ELLEN
--- NOTE | 2019-02-15 18:39 | NUR ---
TRANSFERED UP TO 336, GAVE REPORT TO NURSE RESPONSIBLE, PACKED UP BELONGINGS AND MEDICATIONS, AND TRANSPORTED PT TO NEW ROOM
--- NOTE | 2019-02-15 19:20 | NUR ---
TRANSFER PATIENT TRANSFERRED TO MEDICAL FLOOR. PT ORIENTED TO ROOM AND CALL BUTTON, BED LOCKED AND TO LOW POSITION. PCU TYPE CASTING MACHINE OPERATOR THAT TRANSFERRED PT CALLED PATIENT'S TO UPDATE HIM ON ROOM CHANGE. SHE STATED THAT PT HAD 2 LARGE BMS TODAY. PT DENIES NEEDS AT THIS TIME. REPORT GIVEN TO TAX MANAGER CPA.
--- NOTE | 2019-02-15 21:18 | NUR ---
DR SU WAS CALLED AND NOTIFIED OF PT'S 1830 POTASSIUM DRAW AT 1930. NO NEW ORDERS. WILL CONTINUE TO MONITOR PT.
[2019-02-16 05:10] LABS: Hematocrit 23.7 % (33.0-51.0)
[2019-02-16 05:41] LABS: Albumin, Blood 2.3 g/dL (3.4-5.0); Anion Gap 8 mmol/L (6-16); Blood Urea Nitrogen 33 mg/dL (8-24); Bun/Creatinine Ratio 28.2 (12.0-20.0); CO2, Blood 24 mmol/L (21-32); Calcium, Blood 7.5 mg/dL (8.5-10.1); Chloride, Blood 103 mmol/L (98-108); Creatinine, Blood 1.17 mg/dL (0.40-1.00); Glomerular Filtration Rate 49 (60-); Glucose, Blood 104 mg/dL (70-99); Phosphorus, Blood 2.1 mg/dL (2.5-4.9); Potassium, Blood 3.4 mmol/L (3.5-5.5); Sodium, Blood 135 mmol/L (136-145)
--- NOTE | 2019-02-16 06:05 | NUR ---
SHIFT SUMMARY PT IS CONFUSED TO SITUATION, TIME, AND PLACE. PT ALSO COMPLAINED OF BACK PAIN, MD MADE AWARE AND ANALGESICS ORDERED. HEATING PAD ALSO PLACED TO GOOD EFFECT. PT IS INCONTINENT OF BOTH BOWEL AND URINE. SACRAL MEPELEX CHANGED IT WAS SOILED. NO OTHER COMPLAINTS, VSS. WILL CONTINUE TO MONITOR.
--- NOTE | 2019-02-16 13:45 | NUR ---
Pt. is doing well ,nursew in the room attending to pt. offered prayers.
[2019-02-16] MEDS ORDERED: SPIR25 PO (13:56)
--- NOTE | 2019-02-16 15:50 | NUR ---
DISCHARGE AT 1520 PATIENT DISCHARGED TO [facility]. REPORT CALLED TO NURSE MEYER. WAS GOING TO GO TO [facility] AND REPORT WAS CALLED BUT A BED WAS ARRANGED AT [facility]. IT WAS PREFERABLE FOR THE PATIENT'S . IV REMOVED RIGHT BEFORE PATIENT LEFT IN ORDER FOR ORDERED FLUID TO INFUSE MUCH POSSIBLE. PT REFUSED BREAKFAST AND LUNCH. PT IS ORIENTED X3 WITH SOME SLIGHT CONFUSION. PATIENT HAD A FEW SOFT STOOLS TODAY. COCCYX MEPILEX REPLACED. PACKET AND FACESHEET GIVEN TO TRANSPORTER WITH WHEELCHAIR.
== END 2019-02-16 15:20 | DRG 640 ==
LOC: ER 12:21 → PCU 15:25 → MEDS 02-15 18:50 → ENPENDDIS 02-16 14:18 → MEDS 02-16 15:20
PROVIDERS: Emergency Medicine; Internal Medicine Gastroenterology; Internal Medicine Nephrology; ADMIT Internal Medicine
DX: E87.6 Hypokalemia (principal); G92 Toxic encephalopathy; E44.0 Moderate protein-calorie malnutrition; N17.9 Acute kidney failure, unspecified; E87.1 Hypo-osmolality and hyponatremia; E86.0 Dehydration; E03.9 Hypothyroidism, unspecified; I12.9 Hypertensive chronic kidney disease with stage 1 through stage 4 chronic kidney disease, or unspecified chronic kidney disease; N18.3 Chronic kidney disease, stage 3 (moderate); B18.2 Chronic viral hepatitis C; R26.89 Other abnormalities of gait and mobility; Z68.21 Body mass index [BMI] 21.0-21.9, adult; K74.60 Unspecified cirrhosis of liver; E87.3 Alkalosis
CPT/HCPCS: 36415; 80053; 80069; 82105; 82140; 82533; 83735; 83935; 84100; 84132; 84295; 84300; 84443; 84550; 85014; 85018; 85025; 85610; 93005; 93010; 93975; 96365; 96366; 97162; 97165; 97530; 97535; 99284-25; A9270; J0881; J3010; J3480; J7030; J7060

== ENCOUNTER 2019-02-23 08:46 | Emergency (ER) | payer OTHER ==
[~2019-02-23] VITALS: Ht 160 cm; Wt 59.0 kg
[~2019-02-23 08:46] MED LIST changes: +Bupropion HCl200 MG PO; +Lactulose10 GM/151 PO; +PANT20 PO; +POTCHL20ER PO; +VITAMIN B-121000 MCG PO
== END 2019-02-23 11:34 | disposition home or self-care (01) ==
LOC: ER 08:46
DX: D64.9 Anemia, unspecified (principal); Z88.5 Allergy status to narcotic agent; Z88.8 Allergy status to other drugs, medicaments and biological substances; Z79.899 Other long term (current) drug therapy; E03.9 Hypothyroidism, unspecified; F43.10 Post-traumatic stress disorder, unspecified; F31.9 Bipolar disorder, unspecified; I10 Essential (primary) hypertension
CPT/HCPCS: 99283

== ENCOUNTER 2019-02-24 07:57 | Day surgery (SDC) | payer OTHER ==
--- NOTE | 2019-02-24 18:15 | NUR ---
PT DISCHARGED VIA TRANSPORT WITH [facility].
== END 2019-02-24 18:12 | disposition home or self-care (01) ==
LOC: ATC 07:57
DX: D50.0 Iron deficiency anemia secondary to blood loss (chronic) (principal); E44.0 Moderate protein-calorie malnutrition; K74.69 Other cirrhosis of liver; M20.10 Hallux valgus (acquired), unspecified foot; F31.9 Bipolar disorder, unspecified; E03.9 Hypothyroidism, unspecified; G43.909 Migraine, unspecified, not intractable, without status migrainosus; K21.9 Gastro-esophageal reflux disease without esophagitis; F43.10 Post-traumatic stress disorder, unspecified; Z79.899 Other long term (current) drug therapy; Z88.8 Allergy status to other drugs, medicaments and biological substances; Z88.1 Allergy status to other antibiotic agents
CPT/HCPCS: 36430; 86850; 86900; 86901; 86923; J7050; P9016

== ENCOUNTER 2019-02-25 17:27 | Emergency (ER) | payer OTHER ==
[~2019-02-25] VITALS: Ht 160 cm; Wt 61.7 kg
== END 2019-02-25 21:03 | disposition home or self-care (01) ==
LOC: ER 17:27
DX: S00.03XA Contusion of scalp, initial encounter (principal); I12.9 Hypertensive chronic kidney disease with stage 1 through stage 4 chronic kidney disease, or unspecified chronic kidney disease; N18.4 Chronic kidney disease, stage 4 (severe); D63.1 Anemia in chronic kidney disease; F43.10 Post-traumatic stress disorder, unspecified; F31.9 Bipolar disorder, unspecified; Z88.5 Allergy status to narcotic agent; Z88.8 Allergy status to other drugs, medicaments and biological substances; Z79.899 Other long term (current) drug therapy; W01.10XA Fall on same level from slipping, tripping and stumbling with subsequent striking against unspecified object, initial encounter
CPT/HCPCS: 70450; 99283-25

== ENCOUNTER 2019-03-03 00:27 | Day surgery (SDC) | payer OTHER | END 2019-03-03 11:56 | disposition home or self-care (01) | LOC: ATC 00:27 | DX: D69.6 Thrombocytopenia, unspecified (principal); I12.9 Hypertensive chronic kidney disease with stage 1 through stage 4 chronic kidney disease, or unspecified chronic kidney disease; N18.4 Chronic kidney disease, stage 4 (severe); D63.1 Anemia in chronic kidney disease; Z79.899 Other long term (current) drug therapy | CPT/HCPCS: 36430; 86850; 86900; 86901; 86923; 96374; J7050; P9016 ==

== ENCOUNTER 2019-03-07 16:15 | Inpatient (IN) | payer OTHER ==
[~2019-03-07] VITALS: Ht 165.1 cm; Wt 50.8 kg
[2019-03-07] MEDS ORDERED: ACET325 PO (16:50)
[2019-03-07] MEDS ORDERED: LEVSOD75 PO (16:56)
[2019-03-07] MEDS ORDERED: BISA10S PR (16:59)
[2019-03-07] MEDS ORDERED: Fleet Enema132 ML PR (17:00)
[2019-03-07] MEDS ORDERED: LACTULOSE20 GM/30 M PO (17:01)
[2019-03-07 17:03] LABS: Base Excess Venous -2.4 mmol/L; Bicarbonate Venous 23.2 mmol/L (24.0-30.0); PCO2 Venous 29.1 mmHg (38-42); PO2 Venous 73.3 mmHg (38-42); pH Blood Venous 7.47 (7.34-7.37)
[2019-03-07 17:38] LABS: Source, Urine Catheter
[2019-03-07 17:55] LABS: Bilirubin, Urine Neg (Neg); Blood, Urine 5+ (Neg); Glucose Qualitative, Urine Neg (Neg); Ketones, Urine Neg (Neg); Leukocyte Esterase, Urine 1+ (Neg); Nitrite, Urine Pos (Neg); Protein, Urine 1+ (Neg); Urobilinogen, Urine 2+ (Normal)
[2019-03-07 18:10] LABS: U Amphetamine Screen Not Detected; U Barbituate Screen Not Detected; U Benzodiazapine Screen Not Detected; U Buprenorphine Screen Not Detected; U Cannabinoids Screen Not Detected; U Cocaine Screen Not Detected; U Methadone Screen Not Detected; U Methamphetamine Screen Not Detected; U Opiates Screen Not Detected; U Oxycodone Screen Not Detected; U Phencyclidine Screen Not Detected; U Propoxyphene Screen Not Detected
[2019-03-07 18:11] LABS: Appearance, Urine Hazy (Clear); Color, Urine Yellow (P-Yellow)
[2019-03-07 18:13] LABS: Bacteria Many /hpf; Squamous Epithelial Cells Few /hpf (Few); Yeast/Fungi Urine Few /hpf
[2019-03-07 18:30] LABS: BASOPHILS ABSOLUTE AUTO 0.02 K/mm3 (0.00-0.23); BASOPHILS PERCENT AUTO 0 % (0-2); EOSINOPHILS PERCENT AUTO 0 % (0-6); Hematocrit 35.3 % (33.0-51.0); Hemoglobin 11.6 g/dL (11.5-16.0); IMMATURE GRAN ABSOLUTE AUTO 0.04 K/mm3 (0.00-0.10); IMMATURE GRAN PERCENT AUTO 1 % (0-1); LYMPHOCYTES ABSOLUTE AUTO 0.48 K/mm3 (0.84-5.20); LYMPHOCYTES PERCENT AUTO 8 % (21-46); MONOCYTES PERCENT AUTO 6 % (4-13); Mean Corpuscular HGB 30.9 pg (26.0-34.0); Mean Corpuscular HGB Conc 32.9 g/dL (31.5-36.5); Mean Corpuscular Volume 94 fL (80-100); Mean Platelet Volume 9.7 fL (9.1-12.4); NEUTROPHILS ABSOLUTE AUTO 5.45 K/mm3 (1.96-9.15); NEUTROPHILS PERCENT AUTO 85 % (41-73); Platelet Count 60 K/mm3 (150-400); RDW Standard Deviation 58.4 fL (35.1-46.3); Red Blood Cell Count 3.76 M/mm3 (3.80-5.20); White Blood Cell Count 6.39 K/mm3 (4.00-11.30)
[2019-03-07 18:48] LABS: Albumin, Blood 2.1 g/dL (3.4-5.0); Albumin/Globulin Ratio 0.5 (0.8-1.8); Bilirubin, Total 1.6 mg/dL (0.1-1.0); Bun/Creatinine Ratio 30.3 (12.0-20.0); Calcium, Blood 7.9 mg/dL (8.5-10.1); Creatinine, Blood 1.65 mg/dL (0.40-1.00); Globulin, Blood 4.3 g/dL (2.2-4.0); Potassium, Blood 3.8 mmol/L (3.5-5.5); Total Protein, Blood 6.4 g/dL (6.4-8.2)
[2019-03-07] MEDS ORDERED: OXYB5 PO (19:47)
[2019-03-07] MEDS ORDERED: Bumetanide2 MG PO (20:16)
[2019-03-07] MEDS ORDERED: Megestrol400 MG/10 PO (20:16)
--- NOTE | 2019-03-08 04:45 | NUR ---
SHIFT SUMMARY ADMIT @ 2100. AOX SELF BUT COULD ANSWER SOME HX QUESTIONS. OBTUNDED. LS CLEAR, DENIES SOB ON RA. NO C/O NAUSEA OR PAIN. LAST BM 03/06. SKIN IS RED ON ANKLES, HEELS, AND COCCYX. PT CAME UP WITH FOAM DRESSING ON COCCYX. SCATTERED BRUISING AND SCABS THROUGHOUT UPPER AND LOWER EXT. TELE ST 100. IV IN R AC. JON DRAINING CLEAR YOLIE URINE. UTI. NPO. PLAN FOR PARACENTESIS THIS AM. BED ALARM ON, NO ISSUES. INC, ATTENDS.
[2019-03-08 05:36] LABS: BASOPHILS ABSOLUTE AUTO 0.01 K/mm3 (0.00-0.23); BASOPHILS PERCENT AUTO 0 % (0-2); EOSINOPHILS PERCENT AUTO 0 % (0-6); Hematocrit 31.6 % (33.0-51.0); Hemoglobin 10.4 g/dL (11.5-16.0); IMMATURE GRAN ABSOLUTE AUTO 0.02 K/mm3 (0.00-0.10); IMMATURE GRAN PERCENT AUTO 1 % (0-1); LYMPHOCYTES ABSOLUTE AUTO 0.42 K/mm3 (0.84-5.20); LYMPHOCYTES PERCENT AUTO 10 % (21-46); MONOCYTES ABSOLUTE AUTO 0.25 K/mm3 (0.16-1.47); MONOCYTES PERCENT AUTO 6 % (4-13); Mean Corpuscular HGB 30.5 pg (26.0-34.0); Mean Corpuscular HGB Conc 32.9 g/dL (31.5-36.5); Mean Corpuscular Volume 93 fL (80-100); Mean Platelet Volume 10.2 fL (9.1-12.4); NEUTROPHILS ABSOLUTE AUTO 3.39 K/mm3 (1.96-9.15); NEUTROPHILS PERCENT AUTO 83 % (41-73); Platelet Count 53 K/mm3 (150-400); RDW Coefficient Variation 16.8 % (11.7-14.2); Red Blood Cell Count 3.41 M/mm3 (3.80-5.20); White Blood Cell Count 4.09 K/mm3 (4.00-11.30)
[2019-03-08 06:01] LABS: Bun/Creatinine Ratio 28.1 (12.0-20.0); Calcium, Blood 7.7 mg/dL (8.5-10.1); Creatinine, Blood 1.53 mg/dL (0.40-1.00); Potassium, Blood 3.3 mmol/L (3.5-5.5)
--- NOTE | 2019-03-08 17:16 | NUR ---
PT IS AOX3 AND COOPERATIVE OF CARE TODAY. PT HAS BEEN IN BED AND HAS BEEN A Q2 TURN. PT TREATED FOR PAIN PER EMAR. NPO IN THE AM AND IS NOW MECHANICAL SOFT AT THIS TIME. WILL CONTINUE TO MONITOR.
--- NOTE | 2019-03-08 18:49 | NUR ---
Spiritual CAre inital visit: Kathy was subdued when I visited. She appeared to drift in and out of sleep. When awake, she spoke about past traumatic events in her life. Flat affect. I comforted through calm presence, touch, and words of asurance until she fell into a deeper sleep. No family/friends present. I will remain available.
--- NOTE | 2019-03-09 03:49 | NUR ---
SHIFT SUMMARY AOX4, SLIGHTLY CONFUSED AT TIMES. DENIES SOB AND NAUSEA. PAIN RATED 8/10 IN GROIN. NO RED OR OPEN AREAS. NO PRNS GIVEN. SKIN IS RED ON ANKLES AND HEELS. FOAM DRESSING ON COCCYX. SCATTERED BRUISING AND SCABS ON ARMS AND LEGS. IV IN R AC HAS LR @ 125. JON DRAINING CLEAR YOLIE. CT DONE, NO PARACENTESIS YET. UTI. POSITIVE BLOOD CULTURE RESULT BACK FROM 03/07. VSS ON RA.
[2019-03-09 04:45] LABS: BASOPHILS ABSOLUTE AUTO 0.01 K/mm3 (0.00-0.23); BASOPHILS PERCENT AUTO 0 % (0-2); EOSINOPHILS ABSOLUTE AUTO 0.02 K/mm3 (0.00-0.68); EOSINOPHILS PERCENT AUTO 1 % (0-6); Hematocrit 30.4 % (33.0-51.0); Hemoglobin 9.8 g/dL (11.5-16.0); IMMATURE GRAN ABSOLUTE AUTO 0.02 K/mm3 (0.00-0.10); IMMATURE GRAN PERCENT AUTO 1 % (0-1); LYMPHOCYTES ABSOLUTE AUTO 0.54 K/mm3 (0.84-5.20); LYMPHOCYTES PERCENT AUTO 18 % (21-46); MONOCYTES PERCENT AUTO 7 % (4-13); Mean Corpuscular HGB 30.6 pg (26.0-34.0); Mean Corpuscular HGB Conc 32.2 g/dL (31.5-36.5); Mean Corpuscular Volume 95 fL (80-100); Mean Platelet Volume 10.5 fL (9.1-12.4); NEUTROPHILS ABSOLUTE AUTO 2.28 K/mm3 (1.96-9.15); NEUTROPHILS PERCENT AUTO 74 % (41-73); Platelet Count 52 K/mm3 (150-400); RDW Coefficient Variation 16.4 % (11.7-14.2); RDW Standard Deviation 57.8 fL (35.1-46.3); White Blood Cell Count 3.07 K/mm3 (4.00-11.30)
[2019-03-09 04:59] LABS: Albumin, Blood 1.8 g/dL (3.4-5.0); Albumin/Globulin Ratio 0.5 (0.8-1.8); Bilirubin, Total 0.8 mg/dL (0.1-1.0); Bun/Creatinine Ratio 28.6 (12.0-20.0); Calcium, Blood 7.5 mg/dL (8.5-10.1); Creatinine, Blood 1.33 mg/dL (0.40-1.00); Globulin, Blood 3.7 g/dL (2.2-4.0); Potassium, Blood 3.8 mmol/L (3.5-5.5); Total Protein, Blood 5.5 g/dL (6.4-8.2)
--- NOTE | 2019-03-09 15:44 | NUR ---
ENEMA COMPLETED ON PT. PT TOLERATED PROCESS WELL, BUT HAVE NOT HAD MUCH OUT PUT AFTER . PT IS BEING ENCOURAGED TO HAVE A BOWEL MOVEMENT EVERYTIME SHE HAS CARE GIVEN. WILL CONTINUE TO ENCOURAGE AND CHECK PT.
--- NOTE | 2019-03-09 17:38 | NUR ---
PT AOX3 WITH SOME CONFUSION. PT HAS BEEN STAYING IN BED AND RESTING. PT HAS SOME ABDOMINAL DISTENTION AND DISCOMFORT. STILL NO REAL GOOD RESULT POST ENEMA. PT SEEMS TO HAVE A COUPLE BMs AND THEN WILL BE TIRED. STOOL IS SOFT. CONTINUE TO ENCOURAGE PT TO HAVE BMs. NO DISTRESS NOTED AT THIS TIME.
[2019-03-10 05:07] LABS: BASOPHILS ABSOLUTE AUTO 0.01 K/mm3 (0.00-0.23); BASOPHILS PERCENT AUTO 0 % (0-2); EOSINOPHILS ABSOLUTE AUTO 0.01 K/mm3 (0.00-0.68); EOSINOPHILS PERCENT AUTO 0 % (0-6); Hemoglobin 10.2 g/dL (11.5-16.0); IMMATURE GRAN ABSOLUTE AUTO 0.03 K/mm3 (0.00-0.10); IMMATURE GRAN PERCENT AUTO 1 % (0-1); LYMPHOCYTES ABSOLUTE AUTO 0.68 K/mm3 (0.84-5.20); LYMPHOCYTES PERCENT AUTO 17 % (21-46); MONOCYTES ABSOLUTE AUTO 0.27 K/mm3 (0.16-1.47); MONOCYTES PERCENT AUTO 7 % (4-13); Mean Corpuscular HGB 30.1 pg (26.0-34.0); Mean Corpuscular HGB Conc 32.9 g/dL (31.5-36.5); Mean Platelet Volume 10.3 fL (9.1-12.4); NEUTROPHILS ABSOLUTE AUTO 2.96 K/mm3 (1.96-9.15); NEUTROPHILS PERCENT AUTO 75 % (41-73); Platelet Count 54 K/mm3 (150-400); RDW Coefficient Variation 16.1 % (11.7-14.2); RDW Standard Deviation 54.4 fL (35.1-46.3); Red Blood Cell Count 3.39 M/mm3 (3.80-5.20); White Blood Cell Count 3.96 K/mm3 (4.00-11.30)
[2019-03-10 05:13] LABS: Mean Corpuscular Volume 91 fL (80-100)
[2019-03-10 05:44] LABS: Bun/Creatinine Ratio 28.8 (12.0-20.0); Calcium, Blood 7.3 mg/dL (8.5-10.1); Creatinine, Blood 1.18 mg/dL (0.40-1.00); Potassium, Blood 3.6 mmol/L (3.5-5.5)
[2019-03-10 05:47] LABS: Thyroid Stimulating Hormone 5.61 uIU/mL (0.360-4.800)
--- NOTE | 2019-03-10 05:48 | NUR ---
SHIFT SUMMARY: PATIENT HAD MULTIPLE MILKSHAKE CONSISTANCY BMS THIS SHIFT. AFTER RECIEVING LACTULOSE. MAY NEED TO TITRATE DOSING ON THAT. PATIENT IS CONFUSED AO2-3, IMPULSIVE, TUGGING AT THIS IV TONIGHT. EVENTUALLY THE IV WAS LOST AND NURSE CAME TO START A NEW IV ON HER RFA. PATIENT REMAINS AO2-3 WITH PERIODS OF CONFUSION. BED LOW LOCKED ALARMED. CALL EDWARDS WITHIN REACH
[2019-03-10] MEDS ORDERED: LEVFLO500 PO (11:30)
--- NOTE | 2019-03-10 12:42 | NUR ---
DISCHARGE SUMMARY PT LEAVING TO GO BACK TO [facility]. CALLED AND GAVE REPORT TO ASHLEY. JON OUT, AWAITING PT'S FIRST URINATION PRIOR TO SENDING HER TO [facility]. MANY LOOSE BM OVERNIGHT (5-6 PER NIGHT NURSE), SO HELD MORNING DOSE OF LACTULOSE. ALERT AND ORIENTED X2. COCCYX WOUND REDRESSED. PIV REMOVED. DENIED PAIN. TOOK MEDS PRESCRIBED. AT BEDSIDE, AWAITING RIDE TO [facility]
--- NOTE | 2019-03-10 15:42 | NUR ---
DISCHARGE SUMMARY DR XIAO ORDERED HER JON REMOVED AT 1100 THIS MORNING; AFTER [id number], SHE WAS UNABLE TO VOID, SCANNER SHOWED 400ML IN BLADDER. CALLED DR XIAO AROUND 1500, SHE ORDERED REINSERTION OF JON AND DISCHARGE TO FACILITY TO BLADDER TRAIN HER THERE
[2019-03-10 16:00] LABS: Source, Urine Catheter
[2019-03-10 16:05] LABS: Appearance, Urine Clear (Clear); Bilirubin, Urine Neg (Neg); Blood, Urine 5+ (Neg); Color, Urine Yellow (P-Yellow); Glucose Qualitative, Urine Neg (Neg); Ketones, Urine Neg (Neg); Leukocyte Esterase, Urine 1+ (Neg); Nitrite, Urine Neg (Neg); Protein, Urine 1+ (Neg); Specific Gravity, Urine 1.015 (1.003-1.022); Urobilinogen, Urine 2+ (Normal)
--- NOTE | 2019-03-10 16:08 | NUR ---
UPDATED [place] OF PT'S CATHETHER REINSERTION AFTER FAILING TO VOID, AND THAT THE DOCTOR WANTS THEM TO DO BLADDER TRAINING
[2019-03-10 16:27] LABS: Bacteria Few /hpf; Squamous Epithelial Cells Rare /hpf (Few)
== END 2019-03-10 17:03 | DRG 871 ==
LOC: ER 16:15 → MEDS 19:59
PROVIDERS: Emergency Medicine; Internal Medicine; ADMIT Hospitalist
DX: A41.9 Sepsis, unspecified organism (principal); G92 Toxic encephalopathy; N39.0 Urinary tract infection, site not specified; K76.6 Portal hypertension; I85.10 Secondary esophageal varices without bleeding; E44.0 Moderate protein-calorie malnutrition; Z68.1 Body mass index [BMI] 19.9 or less, adult; D69.59 Other secondary thrombocytopenia; N18.3 Chronic kidney disease, stage 3 (moderate); E03.9 Hypothyroidism, unspecified; F31.9 Bipolar disorder, unspecified; K74.60 Unspecified cirrhosis of liver; K59.00 Constipation, unspecified; I12.9 Hypertensive chronic kidney disease with stage 1 through stage 4 chronic kidney disease, or unspecified chronic kidney disease; F43.10 Post-traumatic stress disorder, unspecified
CPT/HCPCS: 36415; 51702; 71046; 74176; 80048; 80053; 81001; 82140; 82803; 82947; 83605; 83735; 84439; 84443; 85025; 87040; 87077; 87086; 87147; 87186; 93005; 93010; 96361-59; 96365-59; 99285-25; C9113; J0696; J7030; J7050; J7120

== ENCOUNTER → 2019-04-14 | Outpatient (CLI) | payer OTHER ==
[~2019-04-14] MED LIST changes: +BISA10S PR; +Fleet Enema132 ML PR; +LACTULOSE20 GM/30 M PO; +LEVFLO500 PO; +Megestrol400 MG/10 PO; +OXYB5 PO
[2019-04-14 14:15] LABS: Source, Urine Catheter
[2019-04-14 14:22] LABS: Bilirubin, Urine Neg (Neg); Blood, Urine 5+ (Neg); Glucose Qualitative, Urine Neg (Neg); Ketones, Urine Neg (Neg); Leukocyte Esterase, Urine 3+ (Neg); Nitrite, Urine Neg (Neg); Protein, Urine Neg (Neg); Specific Gravity, Urine 1.015 (1.003-1.022); Urobilinogen, Urine NORM (Normal)
[2019-04-14 14:41] LABS: Appearance, Urine Hazy (Clear); Color, Urine Yellow (P-Yellow)
[2019-04-14 14:42] LABS: Bacteria Many /hpf; Red Blood Cells, Urine 0-2 /hpf (0-2); Squamous Epithelial Cells Rare /hpf (Few)
== END | disposition home or self-care (01) ==
LOC: EDSTATUS 08:24 → LAB UVN 14:13
PROVIDERS: Nurse Practitioner Family
DX: M62.81 Muscle weakness (generalized) (principal)
CPT/HCPCS: 81001; 87077; 87086; 87186

== ENCOUNTER → 2019-05-09 | Outpatient (CLI) | payer OTHER | END | disposition home or self-care (01) | LOC: LAB UVN 09:20 → EDSTATUS 15:09 | DX: K74.69 Other cirrhosis of liver (principal) | CPT/HCPCS: 36415; 82140 ==